=== PATIENT | male | born 1945 | race Caucasian/White ===

== ENCOUNTER 2021-07-11 17:32 | Inpatient (IN) ==
[2021-07-11 18:46] LABS: Basophils # (auto) 0.02 K/uL (0-0.2); Basophils % (auto) 0.2 %; Eosinophils # (auto) 0.54 K/uL (0-0.5); Eosinophils % (auto) 4.5 %; Hematocrit (blood only) 40.2 % (42-52); Hemoglobin 12.8 g/dL (14.0-18.0); Immature Granulocytes # (auto) 0.05 K/uL (0.00-0.02); Immature Granulocytes % (auto) 0.4 %; Lymphocytes # (auto) 1.72 K/uL (1.2-3.4); Lymphocytes % (auto) 14.4 %; Mean Corpuscular Hemoglobin 27.5 pg (25-34); Mean Corpuscular Hgb Conc 31.8 g/dL (32-36); Mean Corpuscular Volume 86.3 fL (80-100); Mean Platelet Volume 10.1 fL (7.4-10.4); Monocytes # (auto) 0.99 K/uL (0.11-0.59); Monocytes % (auto) 8.3 %; Neutrophils # (auto) 8.63 K/uL (1.4-6.5); Neutrophils % (auto) 72.2 %; Platelet Count 317 K/uL (130-400); RDW Coefficient of Variation 14.3 % (11.5-14.5); RDW Standard Deviation 44.8 fL (36.4-46.3); Red Blood Count 4.66 M/uL (4.7-6.1); White Blood Count 11.95 K/uL (4.8-10.8)
[2021-07-11 19:09] LABS: Albumin Globulin Ratio 0.9 (0.9-2); Albumin Level 3.9 gm/dl (3.4-5.0); BUN Creatinine Ratio 19.8 (10-20); Bilirubin,Total 0.6 mg/dl (0.2-1.0); Calcium 9.2 mg/dl (8.5-10.1); Creatinine Clr Calc Pharmacy 77.7 ml/min; Est GFR (African American) 85.1 ml/min; Est GFR (Non-African American) 73.4 ml/min; Globulin 4.2 gm/dl (2.5-4.0); Potassium 3.5 mmol/L (3.5-5.1); Total Protein 8.1 gm/dl (6.0-8.3)
[2021-07-11] MEDS ORDERED: DAPTOmycin 500 MG in SYRINGE 0 ML IV ONE (19:27)
[2021-07-11] MEDS ORDERED: CEFEPIME 2,000 MG/20 ML VIAL IV STA (19:27)
--- NOTE | 2021-07-11 19:33 | Emergency Department Note ---
Impression & Plan Cellulitis, Failure of outpatient treatment, Leukocytosis, Pedal edema ED Provider Note NAME: ELI MIXON AGE: 75 SEX: M : 1945 ARRIVES VIA: Ambulance INFORMANT: [Patient] ED PROVIDER(S): [Pritesh Fallon MD] CHIEF COMPLAINT: Foot infection HISTORY OF PRESENT ILLNESS: The patient is a 75-year-old male who states that he has been dealing with an issue/infection in his left foot and leg for over a month. He has been on multiple antibiotics. The patient was seen today by home health and sent to the ER as his foot continues to worsen. He had a foul odor noted today. There has been no fever, no cough or congestion or shortness of breath. The patient is not sure if he is currently on an antibiotic or not. He has a bag of pills at bedside. The bag contains Lasix, omeprazole and Eliquis. The patient states that the toes of the left foot have become macerated and discolored. He states they are painful when touched. REVIEW OF SYSTEMS: See HPI for pertinent positives and negatives. A total of ten systems were r eviewed and were otherwise negative. PMHx/PSHx: See Below SOCIAL HISTORY: See Below. PHYSICAL EXAM: GENERAL: Patient is in no acute distress. HEENT: No acute trauma, normocephalic atraumatic, mucous membranes moist, no nasal congestion, no scleral icterus. NECK: No stridor, no adenopathy, no meningismus, trachea is midline. LUNGS: Clear to auscultation bilaterally, no wheeze, no rhonchi, breath sounds equal. HEART: Irregular rhythm, normal rate, no murmurs. ABDOMEN: Soft, nontender, bowel sounds positive, no hernias, no peritonitis. EXTREMITIES: No cyanosis. The patient has moderate bilateral pedal edema. Both legs are wrapped. The right leg does not appear to show any concerning erythema. The left leg is erythematous and warm with some foul smelling drainage. The bandage was soaked. The toes of the left foot are quite macerated. NEUROLOGIC: Oriented x 3, no acute motor or sensory deficits, no focal weakness. SKIN: No jaundice, no diaphoresis. DIFFERENTIAL DIAGNOSIS: Osteomyelitis, abscess, cellulitis, gangrene, necrotizing fasciitis, bacteremia, cellulitis, sepsis, DVT, failed outpatient treatment, among others. EMERGENCY DEPARTMENT COURSE/PROCEDURES: ECG: Indication was possible sepsis. The ECG shows a normal sinus rhythm with a rate of 72. There is no ST elevation, no PVCs. The QTc is 420. Continuous Cardiac Monitoring: An order was placed for continuous cardiac monitoring. The monitor shows a rate of 102 with sinus tachycardia. MEDICAL DECISION MAKING: There is a mild leukocytosis which would be consistent with infection. There is a very mild anemia noted. There is a normal platelet count. No renal failure or significant electrolyte abnormality. No concerning liver enzyme elevation. The patient appeared to be in a euthyroid state. COVID test returned negative. Left foot CT does not show any abscess, air or osteomyelitis. Left leg ultrasound does not show any acute DVT. On exam, the patient had cellulitis extending from his toes to his knee on the left. There was a foul odor and discharge appreciated. The patient has failed outpatient treatment for his cellulitis. He requires a hospital stay. The patient was given IV daptomycin, he was given IV cefepime. I spoke with the patient, I talked to case management. The on-call hospitalist was consulted. Past Med/Surg History Medical History Anemia BPH with obstruction/lower urinary tract symptoms Chronic diastolic CHF (congestive heart failure) Colovesical fistula Diverticulosis of colon Dyslipidemia H/O small bowel obstruction History of 2019 novel coronavirus disease (COVID-19) Lower extremity cellulitis Morbid obesity due to excess calories Multiple pulmonary emboli Nephrolithiasis OA (osteoarthritis) of knee Recurrent biliary colic Stasis dermatitis Venous insufficiency Venous stasis ulcer of right calf limited to breakdown of skin with varicose veins Surgical History (Updated 07/11/21 @ 20:06 by Keshia Brady DO) History of partial surgical removal of colon History of tonsillectomy and adenoidectomy S/P colostomy takedown S/P hernia repair Family History (Updated 07/11/21 @ 20:07 by Keshia Brady DO) Mother Hypertension Arthritis Social History Smoking Status: Never smoker Second Hand Exposure: No; Do You Dip or Chew Tobacco: No; Hx Alcohol Use: No Hx Substance Use: No Preferred Language: Portuguese Tacker Off Required: No Beliefs That Will Affect Care: None marital status: Single Current Living Situation: Family Current Living Situation Comment: Lives with brother Other Information That Helps Us Care for You: No Feels Safe at Home: Yes Safety Concerns: Feels Safe At This Time Assistive Devices: Cane, Glasses and Walker Allergies Allergies Allergy/AdvReac Type Severity Reaction Status Date / Time Penicillins Allergy Unknown SHAKING/RICK Verified 07/11/21 19:54 [facility] Meds Home Medications Medication Instructions Recorded Confirmed acetaminophen 500 mg tablet 1,000 mg PO DIRECTED PRN 07/11/21 07/12/21 (Tylenol Extra Strength) apixaban 5 mg tablet (Eliquis) 5 mg PO BID 07/11/21 07/12/21 furosemide 40 mg tablet 40 mg PO BID 07/11/21 07/12/21 naproxen sodium 220 mg tablet 220 - 440 mg PO DIRECTED PRN 07/11/21 07/12/21 (Aleve) omeprazole 40 mg capsule,delayed 40 mg PO DAILY 07/11/21 07/12/21 release Results & Data (ED) Vital Signs Vital Signs - 24 hr 07/11/21 17:18 Temperature 36.9 C Temperature Source Temporal Artery Scan Pulse Rate 78 Respiratory Rate 16 Respiratory Effort / Characteristics Non-Labored Respiratory Depth Normal Blood Pressure 142/83 H Blood Pressure Mean 102 Pulse Oximetry 98 Oxygen Delivery Method Room Air Sepsis Recent Fever Within 48 Hours No Sepsis New/Unexplained Change in Mental Status N/A Sepsis Action Taken by Nursing No Action Required Home Medications Current Medication List: was personally reviewed by me Laboratory Data Attestation: I reviewed the patient's lab results. Result diagrams: 07/11/21 18:20 07/11/21 18:20 Lab Results 07/11/21 07/11/21 07/11/21 Range/Units 18:20 18:20 18:20 WBC 11.95 H (4.8-10.8) K/uL RBC 4.66 L (4.7-6.1) M/uL Hgb 12.8 L (14.0-18.0) g/dL Hct 40.2 L (42-52) % MCV 86.3 (80-100) fL MCH 27.5 (25-34) pg MCHC 31.8 L (32-36) g/dL RDW Std Deviation 44.8 (36.4-46.3) fL RDW Coeff of Silvio 14.3 (11.5-14.5) % Plt Count 317 (130-400) K/uL MPV 10.1 (7.4-10.4) fL Immature Gran % (Auto) 0.4 % Neut % (Auto) 72.2 % Lymph % (Auto) 14.4 % Comal % (Auto) 8.3 % Eos % (Auto) 4.5 % Baso % (Auto) 0.2 % Neut # (Auto) 8.63 H (1.4-6.5) K/uL Lymph # (Auto) 1.72 (1.2-3.4) K/uL Comal # (Auto) 0.99 H (0.11-0.59) K/uL Eos # (Auto) 0.54 H (0-0.5) K/uL Baso # (Auto) 0.02 (0-0.2) K/uL Immature Gran # (Auto) 0.05 H (0.00-0.02) K/uL Sodium 139 (136-145) mmol/L Potassium 3.5 (3.5-5.1) mmol/L Chloride 106 (98-107) mmol/L Carbon Dioxide 24 (21-32) mmol/L Anion Gap 9 (3-11) BUN 20 (6-23) mg/dl Creatinine 1.01 (0.6-1.4) mg/dl Est Cr Clr Drug Dosing 77.7 ml/min Est GFR ( Amer) 85.1 ml/min Est GFR (Non-Af Amer) 73.4 ml/min BUN/Creatinine Ratio 19.8 (10-20) Glucose 85 (70-99(Fasting)) mg/dl Calcium 9.2 (8.5-10.1) mg/dl Total Bilirubin 0.6 (0.2-1.0) mg/dl AST 13 (13-39) U/L ALT 8 (7-52) U/L Alkaline Phosphatase 75 (34-104) U/L Total Protein 8.1 (6.0-8.3) gm/dl Albumin 3.9 (3.4-5.0) gm/dl Globulin 4.2 H (2.5-4.0) gm/dl Albumin/Globulin Ratio 0.9 (0.9-2) TSH 1.893 (0.300-4.500) uIu/ml SARS-CoV-2, RNA, NAAT (NEGATIVE) 07/11/21 Range/Units 19:43 WBC (4.8-10.8) K/uL RBC (4.7-6.1) M/uL Hgb (14.0-18.0) g/dL Hct (42-52) % MCV (80-100) fL MCH (25-34) pg MCHC (32-36) g/dL RDW Std Deviation (36.4-46.3) fL RDW Coeff of Silvio (11.5-14.5) % Plt Count (130-400) K/uL MPV (7.4-10.4) fL Immature Gran % (Auto) % Neut % (Auto) % Lymph % (Auto) % [place] % (Auto) % Eos % (Auto) % Baso % (Auto) % Neut # (Auto) (1.4-6.5) K/uL Lymph # (Auto) (1.2-3.4) K/uL Comal # (Auto) (0.11-0.59) K/uL Eos # (Auto) (0-0.5) K/uL Baso # (Auto) (0-0.2) K/uL Immature Gran # (Auto) (0.00-0.02) K/uL Sodium (136-145) mmol/L Potassium (3.5-5.1) mmol/L Chloride (98-107) mmol/L Carbon Dioxide (21-32) mmol/L Anion Gap (3-11) BUN (6-23) mg/dl Creatinine (0.6-1.4) mg/dl Est Cr Clr Drug Dosing ml/min Est GFR ( Amer) ml/min Est GFR (Non-Af Amer) ml/min BUN/Creatinine Ratio (10-20) Glucose (70-99(Fasting)) mg/dl Calcium (8.5-10.1) mg/dl Total Bilirubin (0.2-1.0) mg/dl AST (13-39) U/L ALT (7-52) U/L Alkaline Phosphatase (34-104) U/L Total Protein (6.0-8.3) gm/dl Albumin (3.4-5.0) gm/dl Globulin (2.5-4.0) gm/dl Albumin/Globulin Ratio (0.9-2) TSH (0.300-4.500) uIu/ml SARS-CoV-2, RNA, NAAT NEGATIVE (NEGATIVE) Administered Medications Apixaban (Apixaban 5 Mg Tablet) 5 mg PO BID ALFONSO Stop: 08/11/21 00:45 Last Admin: 07/12/21 01:27 Dose: 5 mg Documented by: [id number] Discontinued Medications Cefepime HCl (Maxipime) 2,000 mg in 20 mls @ 5 mls/min IV NOW STA; Protocol Stop: 07/11/21 19:30 Last Admin: 07/11/21 19:35 Dose: 5 mls/min Documented by: [id number] Daptomycin 500 mg/ Syringe 10 mls @ 5 mls/min IV NOW ONE; Protocol Stop: 07/11/21 19:28 Last Admin: 07/11/21 21:45 Dose: 5 mls/min Documented by: [id number] Imaging Data Radiologist's Impression: Left foot CT without contrast: There is diffuse soft tissue edema. No emphysema or foreign body, no abscess. No fracture. Arthritis is seen. No osteomyelitis seen. Left lower extremity venous ultrasound: No acute DVT. Left groin adenopathy noted. Discharge Plan Visit Data Chief Complaint: Foot Injury/Pain Stated Complaint: infection ED Provider: Pritesh Fallon Discharge Problem: Cellulitis, Failure of outpatient treatment, Leukocytosis, Pedal edema Patient Disposition: Admitted As Inpatient Condition: Fair Discharge Instructions Interventions: ED Discharge Assessment Last Done: 07/11/21 22:31
--- NOTE | 2021-07-11 20:09 | History & Physical Report ---
Date of Service July 11, 2021 Assessment & Plan (1) Cellulitis of left leg: Plan: Cont with broad spectrum abx started in the car (2) Multiple pulmonary emboli: Plan: Previously diagnosed, cont apixaban (3) DVT prophylaxis: Plan: Eliquis Full Code [facility] [place] [facility] History of Present Illness Chief Complaint: LLE cellulitis Primary Care Provider: NO PCP 75 yo M with h/o multiple PE on apixaban, morbid obesity presents with lower extremity cellulitis, being asked to come to the ER by his home health nurse. Patient reports running out of certain medications including an oral antibiotic for about the last 1 week. He sees a railway station manager at [facility] who last saw him on 06/30 and send time to the ER 2/2 left janetot dominique. He transitioned from the [facility] wound center to home health nursing and she was concerned today for the same issues. He reports pain in the leg that is 4/10 and puffy feet have been present now for a couple of weeks. Denies fevers or chills. DEnies abdominal pain Allergies Allergy/AdvReac Type Severity Reaction Status Date / Time Penicillins Allergy Unknown SHAKING/RICK Verified 07/11/21 19:54 [facility] Medications Medication Instructions Recorded Confirmed Type acetaminophen 500 mg tablet 1,000 mg PO DIRECTED PRN 07/11/21 07/12/21 History (Tylenol Extra Strength) apixaban 5 mg tablet (Eliquis) 5 mg PO BID 07/11/21 07/12/21 History furosemide 40 mg tablet 40 mg PO BID 07/11/21 07/12/21 History naproxen sodium 220 mg tablet 220 - 440 mg PO DIRECTED PRN 07/11/21 07/12/21 History (Aleve) omeprazole 40 mg capsule,delayed 40 mg PO DAILY 07/11/21 07/12/21 History release Past Med/Surg History Medical History Anemia BPH with obstruction/lower urinary tract symptoms Chronic diastolic CHF (congestive heart failure) Colovesical fistula Diverticulosis of colon Dyslipidemia H/O small bowel obstruction History of 2019 novel coronavirus disease (COVID-19) Lower extremity cellulitis Morbid obesity due to excess calories Multiple pulmonary emboli Nephrolithiasis OA (osteoarthritis) of knee Recurrent biliary colic Stasis dermatitis Venous insufficiency Venous stasis ulcer of right calf limited to breakdown of skin with varicose veins Surgical History (Updated 07/11/21 @ 20:06 by Keshia Brady DO) History of partial surgical removal of colon History of tonsillectomy and adenoidectomy S/P colostomy takedown S/P hernia repair Family History (Updated 07/11/21 @ 20:07 by Keshia Brady DO) Mother Hypertension Arthritis Social History Smoking Status: Never smoker Second Hand Exposure: No; Do You Dip or Chew Tobacco: No; Hx Alcohol Use: No Hx Substance Use: No Preferred Language: Indonesian Telephone Collector Required: No Beliefs That Will Affect Care: None marital status: Single Current Living Situation: Family Current Living Situation Comment: Lives with brother Other Information That Helps Us Care for You: No Feels Safe at Home: Yes Safety Concerns: Feels Safe At This Time Assistive Devices: Cane, Glasses and Walker Review of Systems Review of Systems: All systems were reviewed and negative except as indicated in HPI above. Physical Exam Physical Exam: CONSTITUTIONAL: WNWD, vitals as above, generally well- appearing, NAD EYES: normal conjunctivae, no scleral icterus, +glasses ENT: external ear and nose normal, oropharynx clear, poor dentition NECK: trachea midline RESPIRATORY: clear to auscultation bilaterally, no crackles, rales or wheezes, normal respiratory effort CARDIOVASCULAR: regular rate and rhythm, S1 and 2 heard without murmurs, gallops or rubs, no JVD, no peripheral edema CHEST: inspection of chest was normal GASTROINTESTINAL: soft, nontender, ND, no guarding MUSCULOSKELETAL: strength 5/5 throughout, head is normocephalic and atraumatic SKIN: warm and dry, LLE +erythema, scaly skin, puffy foot especially on top, unkempt nails with fungus. NEUROLOGIC: CN 2-12 grossly intact, no sensory deficit, normal cognition, normal speech, no tremor PSYCHIATRIC: alert cooperative and oriented to person, place and time. Results & Data Results & Data ([facility]) Vital Signs (Past 12 Hours) Vital Signs Temp Pulse Resp BP Pulse Ox 07/11/21 17:18 36.9 C 78 16 142/83 H 98 Laboratory Results Short CBC 07/11/21 Range/Units 18:20 WBC 11.95 H (4.8-10.8) K/uL Hgb 12.8 L (14.0-18.0) g/dL Hct 40.2 L (42-52) % Plt Count 317 (130-400) K/uL BMP 07/11/21 18:20 Sodium 139 Potassium 3.5 Chloride 106 Carbon Dioxide 24 BUN 20 Creatinine 1.01 Glucose 85 Calcium 9.2 Liver Function 07/11/21 Range/Units 18:20 Total Bilirubin 0.6 (0.2-1.0) mg/dl AST 13 (13-39) U/L ALT 8 (7-52) U/L Alkaline Phosphatase 75 (34-104) U/L Albumin 3.9 (3.4-5.0) gm/dl Code Status & VTE Plan VTE Prophylaxis Plan VTE Prophylaxis will be ordered: Yes
[2021-07-11] MEDS ORDERED: ONDANSETRON INJ 2 MG/ML 2 ML VIAL IV PRN (23:37)
[2021-07-11] MEDS ORDERED: traMADol HCL 50 MG TABLET PO PRN (23:37)
[2021-07-12] MEDS: APIXABAN 5 MG TABLET PO SCH ×3 (01:27→20:59)
--- NOTE | 2021-07-12 06:36 | Ultrasound Report ---
LEFT LOWER EXTREMITY VENOUS DOPPLER HISTORY: Acute pain and swelling of the left lower leg edema COMPARISON STUDY: None. FINDINGS: There is normal compressibility, flow, and augmentation within the left lower extremity daya p venous system. The distal superficial femoral vein was unable to be compressed secondary to patient pain. Subcutaneous edema limits evaluation of the calf veins. Left inguinal chain lymph nodes measur e up to 2.3 x 1.1 cm. IMPRESSION: No DVT within the left lower extremity. ACT 112: Negative or not required by law. Electronically signed by: Zelalem Calvillo M.D. 07/12/2021 6:35 AM
--- NOTE | 2021-07-12 08:14 | CT Scan Report ---
CT foot LT wo con HISTORY: 75 years-old Male poss osteo acute pain with soft tissue swelling of the left foot. Clinica l concern for possible osteomyelitis. COMPARISON: None TECHNIQUE: Multiple axial CT images of the left foot were obtained without the use of IV contrast. A dose lowering technique was used consistent with the principals of JEANETTE. FINDINGS: There is diffuse atrophy of the intrinsic musculature of the foot. Diffuse subcutaneous edema is devan ed within the dorsal tissues of the midfoot and forefoot. There is associated skin thickening with wi thout drainable fluid collection. Arterial calcifications are noted. Tendons and ligaments are not we ll evaluated by CT technique. No gross tendon or ligamentous injury is identified. Multifocal osteoarthritis of the forefoot, midfoot and hindfoot is probably mild to moderate however is moderate within the midfoot. Moderate to large enthesophytes of the calcaneus. There is no acute f racture, dislocation or osseous erosion to suggest acute osteomyelitis. IMPRESSION: 1. No acute fracture, dislocation or osseous erosion to suggest acute osteomyelitis. 2. Diffuse subcutaneous edema, most pronounced within the dorsal midfoot and forefoot is noted along with skin thickening. This may represent cellulitis, venous stasis or lymphedema. 3. No abscess. 4. Atrophy of the musculature may be secondary to chronic denervation. ACT 112: Negative or not required by law. The above report was generated using voice recognition software. It may contain grammatical, syntax o r spelling errors. Electronically signed by: Zelalem Calvillo M.D. 07/12/2021 8:12 AM
[2021-07-12 08:47] LABS: Hematocrit (blood only) 37.3 % (42-52); Hemoglobin 11.9 g/dL (14.0-18.0); Mean Corpuscular Hemoglobin 27.2 pg (25-34); Mean Corpuscular Hgb Conc 31.9 g/dL (32-36); Mean Corpuscular Volume 85.2 fL (80-100); Mean Platelet Volume 9.8 fL (7.4-10.4); Platelet Count 272 K/uL (130-400); RDW Coefficient of Variation 14.3 % (11.5-14.5); RDW Standard Deviation 44.8 fL (36.4-46.3); Red Blood Count 4.38 M/uL (4.7-6.1); White Blood Count 8.85 K/uL (4.8-10.8)
[2021-07-12 09:08] LABS: BUN Creatinine Ratio 20.2 (10-20); C Reactive Protein 2.57 mg/dl (0-0.5); Calcium 8.6 mg/dl (8.5-10.1); Creatinine Clr Calc Pharmacy 77.3 ml/min; Est GFR (African American) 87.2 ml/min; Est GFR (Non-African American) 75.2 ml/min; Potassium 3.6 mmol/L (3.5-5.1)
[2021-07-12] MEDS: FUROSEMIDE 40 MG TAB PO SCH ×2 (09:34→17:21)
[2021-07-12] MEDS: PANTOprazole 40 MG TAB PO SCH (09:34)
--- NOTE | 2021-07-12 17:41 | Hospitalist Progress Note ---
Date of Service July 12, 2021 Assessment & Plan (1) Cellulitis of left leg: Plan: Bilateral leg swelling for a long time Increased with redness and cellulitis since February of last year and may be longer than that Has been under care of [facility] wound care center Condition has been getting worse recently without any fever and/or chills She was sent in by home health nurse Wound care has been consulted Cont with broad spectrum abx started in the car Obesity (2) Multiple pulmonary emboli: Plan: Previously diagnosed, cont apixaban History of multiple pulmonary emboli Continue apixaban (3) DVT prophylaxis: Plan: Eliquis Full Code Dispo- to floor DO Savanna Russell Hospitalist Admission and Anticipated Discharge Date Admission Date: July 11, 2021 Subjective 07/12/2021 The patient was seen and examined in medical telemetry unit He has been complaining of increasing redness and swelling involving the legs, more on the left than the right Denies any fever and or chills No nausea and or vomiting Review of Systems Review of Systems: All systems reviewed and are unremarkable except as noted below Physical Exam Physical Exam: Lying in bed comfortably Constitutional: well developed, well nourished and + obese; not ill appearing Eyes: PERRL, conjunctivae normal, anicteric sclerae ENMT: external ear and nose normal, oropharynx normal Neck: trachea midline, no thyromegaly Respiratory: no respiratory distress Auscultation: + diminished lung sounds and + crackles (Minimal crackles at the bases) Cardiovascular: Rate/Rhythm: regular rate and regular rhythm Heart Sounds: normal S1 and normal S2; no murmur Extremities: + edema (Bilateral leg swelling.Swelling of the feet.Increasing redness both the leg) Gastrointestinal (Abdomen): Inspection/Auscultation: + abdomen distended and normal bowel sounds Percussion/Palpation: abdomen soft; abdomen nontender Musculoskeletal: No acute arthritis in any joint Skin: Bilateral leg cellulitis. Feet more than the lower leg Neurologic: Alert, awake and oriented x3 Psychiatric: A+Ox3, euthymic affect Lymphatic: no cervical or axillary lymphadenopathy Results & Data Results & Data ([facility]) Vital Signs (Past 12 Hours) Vital Signs Temp Pulse Pulse Resp BP Pulse Ox 07/12/21 15:03 36.6 C 67 18 125/77 97 07/12/21 11:08 36.6 C 69 18 138/78 99 07/12/21 08:00 78 07/12/21 07:33 36.4 C L 69 18 113/69 98 Laboratory Results Short CBC 07/11/21 07/12/21 Range/Units 18:20 08:25 WBC 11.95 H 8.85 (4.8-10.8) K/uL Hgb 12.8 L 11.9 L (14.0-18.0) g/dL Hct 40.2 L 37.3 L (42-52) % Plt Count 317 272 (130-400) K/uL BMP 07/11/21 07/12/21 18:20 08:25 Sodium 139 138 Potassium 3.5 3.6 Chloride 106 107 Carbon Dioxide 24 24 BUN 20 20 Creatinine 1.01 0.99 Glucose 85 129 H Calcium 9.2 8.6 Liver Function 07/11/21 Range/Units 18:20 Total Bilirubin 0.6 (0.2-1.0) mg/dl AST 13 (13-39) U/L ALT 8 (7-52) U/L Alkaline Phosphatase 75 (34-104) U/L Albumin 3.9 (3.4-5.0) gm/dl Medications Administered Current Inpatient Medications Acetaminophen (Acetaminophen 325 Mg Tab) 650 mg PO Q4H PRN PRN Reason: Pain or Fever Stop: 08/10/21 23:36 Apixaban (Apixaban 5 Mg Tablet) 5 mg PO BID [facility] Stop: 08/11/21 00:45 Last Admin: 07/12/21 09:34 Dose: 5 mg Documented by: Furosemide (Furosemide 40 Mg Tab) 40 mg PO BID17 [facility] Stop: 08/11/21 08:59 Last Admin: 07/12/21 17:21 Dose: 40 mg Documented by: Daptomycin 350 mg/ Syringe 7 mls @ 3.5 mls/min IV Q24H [facility]; Protocol Stop: 07/19/21 21:59 Miscellaneous Information (Daptomycin Consult Active) 1 ea N/A UD PRN PRN Reason: Consult Stop: 08/10/21 19:26 Ondansetron HCl (Ondansetron Inj 2 Mg/Ml 2 Ml Vial) 4 mg IV Q6H PRN PRN Reason: Nausea Stop: 08/10/21 23:36 Pantoprazole Sodium (Pantoprazole 40 Mg Tab) 40 mg PO DAILY ALFONSO Stop: 08/11/21 08:59 Last Admin: 07/12/21 09:34 Dose: 40 mg Documented by: Tramadol HCl (Tramadol Hcl 50 Mg Tablet) 50 mg PO Q4H PRN PRN Reason: Pain Stop: 08/10/21 23:36
--- NOTE | 2021-07-12 20:43 | Ultrasound Report ---
ULTRASOUND RIGHT LOWER EXTREMITY VENOUS CLINICAL HISTORY: Reported history of deep venous thrombosis. COMPARISON STUDY: No priors. TECHNIQUE: Real-time, grayscale, and color Doppler sonography of the deep veins of the right lower ex tremity was performed from the inguinal crease to the calf. Compression and augmentation were utilize d. FINDINGS: There is no sonographic evidence of deep venous thrombosis identified in the right lower ex tremity. The common femoral, superficial femoral, and popliteal veins are patent and normally memo sible. The greater saphenous vein and the profunda femoris vein at the junction with the common femor al vein are clear. The visualized calf veins are patent. IMPRESSION: There is no sonographic evidence of deep venous thrombosis identified in the right lower extremity. ACT 112: Negative or not required by law. Electronically signed by: Pritesh Garzon M.D. 07/12/2021 8:42 PM
[2021-07-12] MEDS: DAPTOmycin 350 MG in SYRINGE 0 ML IV SCH (21:02)
--- NOTE | 2021-07-12 21:34 | Ultrasound Report ---
ULTRASOUND ANKLE-BRACHIAL INDICES CLINICAL HISTORY: Bilateral foot ulcers. COMPARISON STUDY: No priors. FINDINGS: Ankle-brachial indices were assessed in ultrasound. Right brachial pressure measures 107. P ressures in the right posterior tibial artery measure 137 for an GOLD of 1.28. The right dorsalis pedi s was not compressible. Pressure in the left posterior tibial artery measures 147 for an GOLD of 1.37, and pressures in the left dorsalis pedis measure 116 for an GOLD of 1.08. IMPRESSION: 1. Ankle-brachial indices as above. 2. The right dorsalis pedis artery was noncompressible. Dictated: 07/12/2021 9:17 PM Transcribed: 07/12/2021 9:28 PM Romana [id number] CHIQUIS_Raiza Electronically signed by: Pritesh Garzon M.D. 07/12/2021 9:33 PM
[2021-07-13 06:17] LABS: Basophils # (auto) 0.02 K/uL (0-0.2); Basophils % (auto) 0.2 %; Eosinophils # (auto) 0.83 K/uL (0-0.5); Hematocrit (blood only) 39.6 % (42-52); Hemoglobin 12.7 g/dL (14.0-18.0); Immature Granulocytes # (auto) 0.03 K/uL (0.00-0.02); Immature Granulocytes % (auto) 0.3 %; Lymphocytes # (auto) 1.08 K/uL (1.2-3.4); Lymphocytes % (auto) 9.1 %; Mean Corpuscular Hemoglobin 27.4 pg (25-34); Mean Corpuscular Hgb Conc 32.1 g/dL (32-36); Mean Corpuscular Volume 85.5 fL (80-100); Mean Platelet Volume 9.8 fL (7.4-10.4); Monocytes # (auto) 0.85 K/uL (0.11-0.59); Monocytes % (auto) 7.2 %; Neutrophils # (auto) 9.05 K/uL (1.4-6.5); Neutrophils % (auto) 76.2 %; Platelet Count 268 K/uL (130-400); RDW Coefficient of Variation 14.4 % (11.5-14.5); RDW Standard Deviation 45.1 fL (36.4-46.3); Red Blood Count 4.63 M/uL (4.7-6.1); White Blood Count 11.86 K/uL (4.8-10.8)
[2021-07-13 06:44] LABS: BUN Creatinine Ratio 19.1 (10-20); Calcium 8.6 mg/dl (8.5-10.1); Creatinine Clr Calc Pharmacy 69.5 ml/min; Est GFR (African American) 76.8 ml/min; Est GFR (Non-African American) 66.2 ml/min; Potassium 3.4 mmol/L (3.5-5.1)
[2021-07-13] MEDS ORDERED: POTASSIUM CHLORIDE CRTAB 20 MEQ TABCR PO STA (08:25)
[2021-07-13] MEDS: APIXABAN 5 MG TABLET PO SCH ×2 (09:38→21:47)
[2021-07-13] MEDS: PANTOprazole 40 MG TAB PO SCH (09:38)
[2021-07-13] MEDS: FUROSEMIDE 40 MG TAB PO SCH ×2 (09:39→17:34)
--- NOTE | 2021-07-13 10:21 | Electrocardiogram Report ---
Test Reason : Blood Pressure : / mmHG Vent. Rate : 072 BPM Atrial Rate : 072 BPM P-R Int : 188 ms QRS Dur : 090 ms QT Int : 384 ms P-R-T Axes : 002 -12 051 degrees QTc Int : 420 ms Poor data quality, interpretation may be adversely affected Normal sinus rhythm Normal ECG No previous ECGs available Confirmed by Luis Felipe Taveras ([id number]) on 07/13/2021 10:21:13 AM Referred By: REFERRED SELF Confirmed By:Luis Felipe Taveras
--- NOTE | 2021-07-13 15:15 | Hospitalist Progress Note ---
Date of Service July 13, 2021 Assessment & Plan (1) Cellulitis of left leg: Plan: Bilateral leg swelling for a long time Increased with redness and cellulitis since February of last year and may be longer than that Has been under care of [facility] wound care center Condition has been getting worse recently without any fever and/or chills She was sent in by home health nurse Wound care has been consulted Cont with broad spectrum abx started in the car Appreciate ID input and recommendation-daptomycin and meropenem for a total of 14 days, awaiting further recommendation depending on sensitivity and culture Patient is being followed of by backrest assembler and also wound care as an outpatient and will continue PT and OT evaluation for possible placement No evidence of DVTs-GOLD noted Obesity Advised diet and weight management (2) Multiple pulmonary emboli: Plan: Previously diagnosed, cont apixaban History of multiple pulmonary emboli Continue apixaban (3) DVT prophylaxis: Plan: Harriet Full Code Dispo- to floor Admission and Anticipated Discharge Date Admission Date: July 11, 2021 Subjective 07/12/2021 The patient was seen and examined in medical telemetry unit He has been complaining of increasing redness and swelling involving the legs, more on the left than the right Denies any fever and or chills No nausea and or vomiting 07/13/2021 The patient was seen and examined in medical telemetry unit He has been out of bed on a chair He denies any fever and/or chills Legs are not any better Review of Systems Review of Systems: All systems reviewed and are unremarkable except as noted below Physical Exam Physical Exam: Lying in bed comfortably Constitutional: well developed, well nourished and + obese; not ill appearing Eyes: PERRL, conjunctivae normal, anicteric sclerae ENMT: external ear and nose normal, oropharynx normal Neck: trachea midline, no thyromegaly Respiratory: no respiratory distress Auscultation: + diminished lung sounds and + crackles (Minimal crackles at the bases) Cardiovascular: Rate/Rhythm: regular rate and regular rhythm Heart Sounds: normal S1 and normal S2; no murmur Extremities: + edema (Bilateral leg swelling.Swelling of the feet.Increasing redness both the leg) Gastrointestinal (Abdomen): Inspection/Auscultation: + abdomen distended and normal bowel sounds Percussion/Palpation: abdomen soft; abdomen nontender Musculoskeletal: No acute arthritis in any joint Skin: Please see the picture of the bilateral leg wounds Neurologic: Alert, awake and oriented x3 Psychiatric: A+Ox3, euthymic affect Lymphatic: no cervical or axillary lymphadenopathy Results & Data Results & Data ([facility]) Vital Signs (Past 12 Hours) Vital Signs Temp Pulse Pulse Resp BP Pulse Ox 07/13/21 11:04 36.8 C 68 17 127/75 99 07/13/21 08:00 68 07/13/21 07:33 36.5 C 64 18 135/75 97 07/13/21 03:49 36.4 C L 73 20 138/76 98 Laboratory Results Short CBC 07/13/21 Range/Units 05:48 WBC 11.86 H (4.8-10.8) K/uL Hgb 12.7 L (14.0-18.0) g/dL Hct 39.6 L (42-52) % Plt Count 268 (130-400) K/uL BMP 07/13/21 05:48 Sodium 136 Potassium 3.4 L Chloride 105 Carbon Dioxide 23 BUN 21 Creatinine 1.10 Glucose 96 Calcium 8.6 Medications Administered Current Inpatient Medications Acetaminophen (Acetaminophen 325 Mg Tab) 650 mg PO Q4H PRN PRN Reason: Pain or Fever Stop: 08/10/21 23:36 Apixaban (Apixaban 5 Mg Tablet) 5 mg PO BID [facility] Stop: 08/11/21 00:45 Last Admin: 07/13/21 09:38 Dose: 5 mg Documented by: Furosemide (Furosemide 40 Mg Tab) 40 mg PO BID17 [facility] Stop: 08/11/21 08:59 Last Admin: 07/13/21 09:39 Dose: 40 mg Documented by: Daptomycin 350 mg/ Syringe 7 mls @ 3.5 mls/min IV Q24H [facility]; Protocol Stop: 07/19/21 21:59 Last Admin: 07/12/21 21:02 Dose: 3.5 mls/min Documented by: Miscellaneous Information (Daptomycin Consult Active) 1 ea N/A UD PRN PRN Reason: Consult Stop: 08/10/21 19:26 Ondansetron HCl (Ondansetron Inj 2 Mg/Ml 2 Ml Vial) 4 mg IV Q6H PRN PRN Reason: Nausea Stop: 08/10/21 23:36 Pantoprazole Sodium (Pantoprazole 40 Mg Tab) 40 mg PO DAILY [facility] Stop: 08/11/21 08:59 Last Admin: 07/13/21 09:38 Dose: 40 mg Documented by: Tramadol HCl (Tramadol Hcl 50 Mg Tablet) 50 mg PO Q4H PRN PRN Reason: Pain Stop: 08/10/21 23:36
[2021-07-13] MEDS: DAPTOmycin 350 MG in SYRINGE 0 ML IV SCH (21:47)
[2021-07-14 06:10] LABS: Basophils # (auto) 0.02 K/uL (0-0.2); Basophils % (auto) 0.2 %; Eosinophils # (auto) 0.63 K/uL (0-0.5); Hematocrit (blood only) 37.6 % (42-52); Hemoglobin 12.1 g/dL (14.0-18.0); Immature Granulocytes # (auto) 0.03 K/uL (0.00-0.02); Immature Granulocytes % (auto) 0.3 %; Lymphocytes # (auto) 1.17 K/uL (1.2-3.4); Lymphocytes % (auto) 13.1 %; Mean Corpuscular Hemoglobin 27.1 pg (25-34); Mean Corpuscular Hgb Conc 32.2 g/dL (32-36); Mean Corpuscular Volume 84.1 fL (80-100); Mean Platelet Volume 9.9 fL (7.4-10.4); Monocytes % (auto) 7.8 %; Neutrophils % (auto) 71.6 %; Platelet Count 275 K/uL (130-400); RDW Coefficient of Variation 14.3 % (11.5-14.5); Red Blood Count 4.47 M/uL (4.7-6.1); White Blood Count 8.95 K/uL (4.8-10.8)
[2021-07-14 06:35] LABS: BUN Creatinine Ratio 23.5 (10-20); Calcium 8.7 mg/dl (8.5-10.1); Creatinine Clr Calc Pharmacy 77.9 ml/min; Est GFR (African American) 88.3 ml/min; Est GFR (Non-African American) 76.2 ml/min; Potassium 3.4 mmol/L (3.5-5.1)
[2021-07-14] MEDS: APIXABAN 5 MG TABLET PO SCH ×2 (08:27→21:07)
[2021-07-14] MEDS: FUROSEMIDE 40 MG TAB PO SCH ×2 (08:27→17:06)
[2021-07-14] MEDS: PANTOprazole 40 MG TAB PO SCH (08:27)
[2021-07-14] MEDS: cephALEXin 500 MG CAP PO SCH ×3 (13:11→21:07)
--- NOTE | 2021-07-14 16:50 | Hospitalist Progress Note ---
Date of Service July 14, 2021 Assessment & Plan (1) Cellulitis of left leg: Plan: Bilateral leg swelling for a long time Increased with redness and cellulitis since February of last year and may be longer than that Has been under care of [facility] wound care center Condition has been getting worse recently without any fever and/or chills She was sent in by home health nurse Wound care has been consulted Cont with broad spectrum abx started in the car Appreciate ID input and recommendation-daptomycin and meropenem for a total of 14 days, awaiting further recommendation depending on sensitivity and culture Patient is being followed of by agribusiness internship and also wound care as an outpatient and will continue PT and OT evaluation for possible placement No evidence of DVTs-GOLD noted Cellulitis seems to be stable and there is no drainage from the wound Antibiotic has been changed to Keflex Has been getting PT and OT and likely to need placement on discharge Will continue to have outpatient wound care appointment and podiatry appointment Obesity Advised diet and weight management (2) Multiple pulmonary emboli: Plan: Previously diagnosed, cont apixaban History of multiple pulmonary emboli Continue apixaban (3) DVT prophylaxis: Plan: Harriet Full Code Dispo- to floor Admission and Anticipated Discharge Date Admission Date: July 11, 2021 Subjective 07/12/2021 The patient was seen and examined in medical telemetry unit He has been complaining of increasing redness and swelling involving the legs, more on the left than the right Denies any fever and or chills No nausea and or vomiting 07/13/2021 The patient was seen and examined in medical telemetry unit He has been out of bed on a chair He denies any fever and/or chills Legs are not any better 07/14/2021 The patient was seen and examined in medical telemetry unit alert He is out of bed on a chair Denies any significant complaints except problem with ambulation due to bilateral leg cellulitis He may need rehab placement on discharge Review of Systems Review of Systems: All systems reviewed and are unremarkable except as noted below Physical Exam Physical Exam: Lying in bed comfortably Constitutional: well developed, well nourished and + obese; not ill appearing Eyes: PERRL, conjunctivae normal, anicteric sclerae ENMT: external ear and nose normal, oropharynx normal Neck: trachea midline, no thyromegaly Respiratory: no respiratory distress Auscultation: + diminished lung sounds and + crackles (Minimal crackles at the bases) Cardiovascular: Rate/Rhythm: regular rate and regular rhythm Heart Sounds: normal S1 and normal S2; no murmur Extremities: + edema (Bilateral leg swelling.Swelling of the feet.Increasing redness both the leg) Gastrointestinal (Abdomen): Inspection/Auscultation: + abdomen distended and normal bowel sounds Percussion/Palpation: abdomen soft; abdomen nontender Musculoskeletal: No acute arthritis in any joint Neurologic: Alert, awake and oriented x3. No focal sensory or no motor deficit appreciated Psychiatric: A+Ox3, euthymic affect Lymphatic: no cervical or axillary lymphadenopathy Results & Data Results & Data ([facility]) Vital Signs (Past 12 Hours) Vital Signs Temp Pulse Pulse Pulse Resp BP Pulse Ox 07/14/21 15:48 36.5 C 67 18 120/77 99 07/14/21 14:20 68 07/14/21 11:15 36.4 C L 70 18 118/72 98 07/14/21 07:26 36.5 C 67 18 122/75 96 07/14/21 06:12 72 Laboratory Results Short CBC 07/14/21 Range/Units 05:43 WBC 8.95 (4.8-10.8) K/uL Hgb 12.1 L (14.0-18.0) g/dL Hct 37.6 L (42-52) % Plt Count 275 (130-400) K/uL BMP 07/14/21 05:43 Sodium 137 Potassium 3.4 L Chloride 105 Carbon Dioxide 24 BUN 23 Creatinine 0.98 Glucose 94 Calcium 8.7 Medications Administered Current Inpatient Medications Acetaminophen (Acetaminophen 325 Mg Tab) 650 mg PO Q4H PRN PRN Reason: Pain or Fever Stop: 08/10/21 23:36 Apixaban (Apixaban 5 Mg Tablet) 5 mg PO BID [facility] Stop: 08/11/21 00:45 Last Admin: 07/14/21 08:27 Dose: 5 mg Documented by: Cephalexin HCl (Cephalexin 500 Mg Cap) 500 mg PO QID [facility] Stop: 07/21/21 12:59 Last Admin: 07/14/21 13:11 Dose: 500 mg Documented by: Furosemide (Furosemide 40 Mg Tab) 40 mg PO BID17 [facility] Stop: 08/11/21 08:59 Last Admin: 07/14/21 08:27 Dose: 40 mg Documented by: Ondansetron HCl (Ondansetron Inj 2 Mg/Ml 2 Ml Vial) 4 mg IV Q6H PRN PRN Reason: Nausea Stop: 08/10/21 23:36 Pantoprazole Sodium (Pantoprazole 40 Mg Tab) 40 mg PO DAILY [facility] Stop: 08/11/21 08:59 Last Admin: 07/14/21 08:27 Dose: 40 mg Documented by: Tramadol HCl (Tramadol Hcl 50 Mg Tablet) 50 mg PO Q4H PRN PRN Reason: Pain Stop: 08/10/21 23:36
[2021-07-14] MEDS: ACETAMINOPHEN 325 MG TAB PO PRN (21:07)
[2021-07-15 07:40] LABS: Basophils # (auto) 0.02 K/uL (0-0.2); Basophils % (auto) 0.2 %; Eosinophils # (auto) 0.69 K/uL (0-0.5); Eosinophils % (auto) 7.6 %; Hematocrit (blood only) 37.9 % (42-52); Hemoglobin 12.3 g/dL (14.0-18.0); Immature Granulocytes # (auto) 0.03 K/uL (0.00-0.02); Immature Granulocytes % (auto) 0.3 %; Lymphocytes # (auto) 1.44 K/uL (1.2-3.4); Lymphocytes % (auto) 15.8 %; Mean Corpuscular Hemoglobin 27.6 pg (25-34); Mean Corpuscular Hgb Conc 32.5 g/dL (32-36); Mean Corpuscular Volume 85.2 fL (80-100); Mean Platelet Volume 10.1 fL (7.4-10.4); Monocytes # (auto) 0.77 K/uL (0.11-0.59); Monocytes % (auto) 8.5 %; Neutrophils # (auto) 6.16 K/uL (1.4-6.5); Neutrophils % (auto) 67.6 %; Platelet Count 303 K/uL (130-400); RDW Coefficient of Variation 14.1 % (11.5-14.5); RDW Standard Deviation 44.5 fL (36.4-46.3); Red Blood Count 4.45 M/uL (4.7-6.1); White Blood Count 9.11 K/uL (4.8-10.8)
[2021-07-15] MEDS: APIXABAN 5 MG TABLET PO SCH ×2 (07:46→20:08)
[2021-07-15] MEDS: PANTOprazole 40 MG TAB PO SCH (07:46)
[2021-07-15] MEDS: cephALEXin 500 MG CAP PO SCH ×4 (07:46→20:08)
[2021-07-15] MEDS: FUROSEMIDE 40 MG TAB PO SCH ×2 (07:47→16:02)
[2021-07-15 08:03] LABS: BUN Creatinine Ratio 26.3 (10-20); Calcium 8.9 mg/dl (8.5-10.1); Creatinine Clr Calc Pharmacy 76.9 ml/min; Est GFR (African American) 87.2 ml/min; Est GFR (Non-African American) 75.2 ml/min; Potassium 3.2 mmol/L (3.5-5.1)
[2021-07-15] MEDS ORDERED: POTASSIUM CHLORIDE CRTAB 20 MEQ TABCR PO STA (08:25)
--- NOTE | 2021-07-15 13:49 | Hospitalist Progress Note ---
Date of Service July 15, 2021 Assessment & Plan (1) Cellulitis of left leg: Plan: Bilateral leg swelling for a long time Increased with redness and cellulitis since February of last year and may be longer than that Has been under care of [facility] wound care center Condition has been getting worse recently without any fever and/or chills She was sent in by home health nurse Wound care has been consulted Cont with broad spectrum abx started in the car Appreciate ID input and recommendation-daptomycin and meropenem for a total of 14 days, awaiting further recommendation depending on sensitivity and culture Patient is being followed of by animal park code enforcement officer and also wound care as an outpatient and will continue PT and OT evaluation for possible placement No evidence of DVTs-GOLD noted Cellulitis seems to be stable and there is no drainage from the wound Antibiotic has been changed to Keflex Has been getting PT and OT and likely to need placement on discharge Will continue to have outpatient wound care appointment and podiatry appointment Legs are looking much better today Advised to keep the leg elevated over AFP low at 2 during the night Continue dressing as per the wound care nurse Has been waiting to be placed Obesity Advised diet and weight management (2) Multiple pulmonary emboli: Plan: Previously diagnosed, cont apixaban History of multiple pulmonary emboli Continue apixaban (3) DVT prophylaxis: Plan: Harriet Full Code Dispo- to floor Admission and Anticipated Discharge Date Admission Date: July 11, 2021 Subjective 07/12/2021 The patient was seen and examined in medical telemetry unit He has been complaining of increasing redness and swelling involving the legs, more on the left than the right Denies any fever and or chills No nausea and or vomiting 07/13/2021 The patient was seen and examined in medical telemetry unit He has been out of bed on a chair He denies any fever and/or chills Legs are not any better 07/14/2021 The patient was seen and examined in medical telemetry unit He is out of bed on a chair Denies any significant complaints except problem with ambulation due to bilateral leg cellulitis He may need rehab placement on discharge 07/15/2021 The patient was seen and examined in medical telemetry unit He has been out of bed on a chair Has been feeling much better since admission and the legs are looking better Review of Systems Review of Systems: All systems reviewed and are unremarkable except as noted below Physical Exam Physical Exam: Lying in bed comfortably Constitutional: well developed, well nourished and + obese; not ill appearing Eyes: PERRL, conjunctivae normal, anicteric sclerae ENMT: external ear and nose normal, oropharynx normal Neck: trachea midline, no thyromegaly Respiratory: no respiratory distress Auscultation: + diminished lung sounds and + crackles (Minimal crackles at the bases) Cardiovascular: Rate/Rhythm: regular rate and regular rhythm Heart Sounds: normal S1 and normal S2; no murmur Extremities: + edema (Bilateral leg swelling.Swelling of the feet.Increasing redness both the leg) Gastrointestinal (Abdomen): Inspection/Auscultation: + abdomen distended and normal bowel sounds Percussion/Palpation: abdomen soft; abdomen nontender Musculoskeletal: No acute arthritis in any joint Skin: Bilateral leg edema with chronic skin changes and redness with cellulitis, but the feet are worse than the leg Neurologic: Alert, awake and oriented x3. No focal sensory and motor deficit appreciated Psychiatric: A+Ox3, euthymic affect Lymphatic: no cervical or axillary lymphadenopathy Results & Data Results & Data ([facility]) Vital Signs (Past 12 Hours) Vital Signs Temp Pulse Pulse Resp BP BP Pulse Ox 07/15/21 11:27 36.6 C 66 20 137/84 97 07/15/21 09:15 60 07/15/21 07:23 36.3 C L 60 20 126/76 97 07/15/21 03:12 36.4 C L 62 18 127/77 97 Laboratory Results Short CBC 07/15/21 Range/Units 07:15 WBC 9.11 (4.8-10.8) K/uL Hgb 12.3 L (14.0-18.0) g/dL Hct 37.9 L (42-52) % Plt Count 303 (130-400) K/uL BMP 07/15/21 07:15 Sodium 137 Potassium 3.2 L Chloride 102 Carbon Dioxide 26 BUN 26 H Creatinine 0.99 Glucose 93 Calcium 8.9 Medications Administered Current Inpatient Medications Acetaminophen (Acetaminophen 325 Mg Tab) 650 mg PO Q4H PRN PRN Reason: Pain or Fever Stop: 08/10/21 23:36 Last Admin: 07/14/21 21:07 Dose: 650 mg Documented by: Apixaban (Apixaban 5 Mg Tablet) 5 mg PO BID [facility] Stop: 08/11/21 00:45 Last Admin: 07/15/21 07:46 Dose: 5 mg Documented by: Cephalexin HCl (Cephalexin 500 Mg Cap) 500 mg PO QID [facility] Stop: 07/21/21 12:59 Last Admin: 07/15/21 12:47 Dose: 500 mg Documented by: Furosemide (Furosemide 40 Mg Tab) 40 mg PO BID17 [facility] Stop: 08/11/21 08:59 Last Admin: 07/15/21 07:47 Dose: 40 mg Documented by: Ondansetron HCl (Ondansetron Inj 2 Mg/Ml 2 Ml Vial) 4 mg IV Q6H PRN PRN Reason: Nausea Stop: 08/10/21 23:36 Pantoprazole Sodium (Pantoprazole 40 Mg Tab) 40 mg PO DAILY [facility] Stop: 08/11/21 08:59 Last Admin: 07/15/21 07:46 Dose: 40 mg Documented by: Tramadol HCl (Tramadol Hcl 50 Mg Tablet) 50 mg PO Q4H PRN PRN Reason: Pain Stop: 08/10/21 23:36
[2021-07-15] MEDS: ACETAMINOPHEN 325 MG TAB PO PRN (20:07)
[2021-07-16] MEDS: cephALEXin 500 MG CAP PO SCH ×4 (08:07→20:12)
[2021-07-16] MEDS: APIXABAN 5 MG TABLET PO SCH ×2 (08:07→20:12)
[2021-07-16] MEDS: PANTOprazole 40 MG TAB PO SCH (08:08)
[2021-07-16] MEDS: FUROSEMIDE 40 MG TAB PO SCH ×2 (08:08→16:42)
--- NOTE | 2021-07-16 15:11 | Hospitalist Progress Note ---
Date of Service July 16, 2021 Assessment & Plan (1) Cellulitis of left leg: Plan: Bilateral leg swelling for a long time Increased with redness and cellulitis since February of last year and may be longer than that Has been under care of [facility] wound care center Condition has been getting worse recently without any fever and/or chills She was sent in by home health nurse Wound care has been consulted Cont with broad spectrum abx started in the car Appreciate ID input and recommendation-daptomycin and meropenem for a total of 14 days, awaiting further recommendation depending on sensitivity and culture Patient is being followed of by real estate closer and also wound care as an outpatient and will continue PT and OT evaluation for possible placement No evidence of DVTs-GOLD noted Cellulitis seems to be stable and there is no drainage from the wound Antibiotic has been changed to Keflex Has been getting PT and OT and likely to need placement on discharge Will continue to have outpatient wound care appointment and podiatry appointment Legs are looking much better today with decreasing redness and swelling without significant wheezing of any fluid Advised to keep the legs elevated over 1 or 2 pillows at night Likely to be discharged tomorrow, likely home with home health nurse, antibiotic course should be continued a total of 14 days Continue with outpatient podiatry and wound care management Obesity Advised diet and weight management (2) Multiple pulmonary emboli: Plan: Previously diagnosed, cont apixaban History of multiple pulmonary emboli Continue apixaban (3) DVT prophylaxis: Plan: Harriet Full Code Dispo- to floor Admission and Anticipated Discharge Date Admission Date: July 11, 2021 Subjective 07/12/2021 The patient was seen and examined in medical telemetry unit He has been complaining of increasing redness and swelling involving the legs, more on the left than the right Denies any fever and or chills No nausea and or vomiting 07/13/2021 The patient was seen and examined in medical telemetry unit He has been out of bed on a chair He denies any fever and/or chills Legs are not any better 07/14/2021 The patient was seen and examined in medical telemetry unit He is out of bed on a chair Denies any significant complaints except problem with ambulation due to bilateral leg cellulitis He may need rehab placement on discharge 07/15/2021 The patient was seen and examined in medical telemetry unit He has been out of bed on a chair Has been feeling much better since admission and the legs are looking better 07/16/2021 The patient was seen and examined in medical telemetry unit He has been feeling much better and his legs are much better too Denies any pain in the legs-has been ambulating reasonably Denies any fever and/or chills and no other symptoms Review of Systems Review of Systems: All systems reviewed and are unremarkable except as noted below Physical Exam Physical Exam: Lying in bed comfortably Constitutional: well developed, well nourished and + obese; not ill appearing Eyes: PERRL, conjunctivae normal, anicteric sclerae ENMT: external ear and nose normal, oropharynx normal Neck: trachea midline, no thyromegaly Respiratory: no respiratory distress Auscultation: + diminished lung sounds and + crackles (Minimal crackles at the bases) Cardiovascular: Rate/Rhythm: regular rate and regular rhythm Heart Sounds: normal S1 and normal S2; no murmur Extremities: + edema (Bilateral leg swelling.Swelling of the feet. Both the legs are improved) Gastrointestinal (Abdomen): Inspection/Auscultation: + abdomen distended and normal bowel sounds Percussion/Palpation: abdomen soft; abdomen nontender Musculoskeletal: No acute arthritis in any joint Neurologic: Alert, awake and oriented x3. No focal sensory or no motor deficit appreciated Psychiatric: A+Ox3, euthymic affect Lymphatic: no cervical or axillary lymphadenopathy Results & Data Results & Data ([facility]) Vital Signs (Past 12 Hours) Vital Signs Temp Pulse Pulse Resp BP Pulse Ox 07/16/21 14:53 80 07/16/21 14:41 36.4 C L 70 18 138/82 93 07/16/21 11:48 36.5 C 69 20 114/74 96 07/16/21 08:23 65 07/16/21 07:29 36.4 C L 65 20 136/75 99 07/16/21 03:55 36.4 C L 63 20 137/69 97 Medications Administered Current Inpatient Medications Acetaminophen (Acetaminophen 325 Mg Tab) 650 mg PO Q4H PRN PRN Reason: Pain or Fever Stop: 08/10/21 23:36 Last Admin: 07/15/21 20:07 Dose: 650 mg Documented by: Apixaban (Apixaban 5 Mg Tablet) 5 mg PO BID [facility] Stop: 08/11/21 00:45 Last Admin: 07/16/21 08:07 Dose: 5 mg Documented by: Cephalexin HCl (Cephalexin 500 Mg Cap) 500 mg PO QID [facility] Stop: 07/21/21 12:59 Last Admin: 07/16/21 14:29 Dose: 500 mg Documented by: Furosemide (Furosemide 40 Mg Tab) 40 mg PO BID17 [facility] Stop: 08/11/21 08:59 Last Admin: 07/16/21 08:08 Dose: 40 mg Documented by: Ondansetron HCl (Ondansetron Inj 2 Mg/Ml 2 Ml Vial) 4 mg IV Q6H PRN PRN Reason: Nausea Stop: 08/10/21 23:36 Pantoprazole Sodium (Pantoprazole 40 Mg Tab) 40 mg PO DAILY [facility] Stop: 08/11/21 08:59 Last Admin: 07/16/21 08:08 Dose: 40 mg Documented by: Tramadol HCl (Tramadol Hcl 50 Mg Tablet) 50 mg PO Q4H PRN PRN Reason: Pain Stop: 08/10/21 23:36
[2021-07-17 07:37] LABS: Basophils # (auto) 0.02 K/uL (0-0.2); Basophils % (auto) 0.2 %; Eosinophils # (auto) 0.48 K/uL (0-0.5); Eosinophils % (auto) 5.7 %; Hematocrit (blood only) 38.6 % (42-52); Hemoglobin 12.3 g/dL (14.0-18.0); Immature Granulocytes # (auto) 0.03 K/uL (0.00-0.02); Immature Granulocytes % (auto) 0.4 %; Lymphocytes % (auto) 17.9 %; Mean Corpuscular Hemoglobin 27.5 pg (25-34); Mean Corpuscular Hgb Conc 31.9 g/dL (32-36); Mean Corpuscular Volume 86.2 fL (80-100); Monocytes % (auto) 7.2 %; Neutrophils # (auto) 5.76 K/uL (1.4-6.5); Neutrophils % (auto) 68.6 %; Platelet Count 294 K/uL (130-400); RDW Coefficient of Variation 14.2 % (11.5-14.5); RDW Standard Deviation 44.6 fL (36.4-46.3); Red Blood Count 4.48 M/uL (4.7-6.1); White Blood Count 8.39 K/uL (4.8-10.8)
[2021-07-17] MEDS: APIXABAN 5 MG TABLET PO SCH ×2 (07:39→20:36)
[2021-07-17] MEDS: FUROSEMIDE 40 MG TAB PO SCH ×2 (07:39→16:04)
[2021-07-17] MEDS: cephALEXin 500 MG CAP PO SCH ×4 (07:40→20:37)
[2021-07-17] MEDS: PANTOprazole 40 MG TAB PO SCH (07:40)
[2021-07-17 07:58] LABS: Calcium 9.1 mg/dl (8.5-10.1); Creatinine Clr Calc Pharmacy 79.3 ml/min; Est GFR (African American) 90.5 ml/min; Est GFR (Non-African American) 78.1 ml/min; Potassium 3.7 mmol/L (3.5-5.1)
--- NOTE | 2021-07-17 22:28 | Hospitalist Progress Note ---
Date of Service July 17, 2021 Assessment & Plan (1) Cellulitis of left leg: Plan: Bilateral leg swelling for a long time Increased with redness and cellulitis since February of last year and may be longer than that Has been under care of [facility] wound care center Condition has been getting worse recently without any fever and/or chills She was sent in by home health nurse Wound care has been consulted Cont with broad spectrum abx started in the car Appreciate ID input and recommendation-daptomycin and meropenem for a total of 14 days, awaiting further recommendation depending on sensitivity and culture Patient is being followed of by linoleum installer and also wound care as an outpatient and will continue PT and OT evaluation for possible placement No evidence of DVTs-GOLD noted Cellulitis seems to be stable and there is no drainage from the wound Antibiotic has been changed to Keflex Has been getting PT and OT and likely to need placement on discharge Will continue to have outpatient wound care appointment and podiatry appointment Legs are looking much better today with decreasing redness and swelling without significant wheezing of any fluid Advised to keep the legs elevated over 1 or 2 pillows at night Likely to be discharged tomorrow, likely home with home health nurse, to complete a total 14 days course antibiotic Continue with outpatient podiatry and wound care management Obesity Advised diet and weight management (2) Multiple pulmonary emboli: Plan: Previously diagnosed, cont apixaban History of multiple pulmonary emboli Continue apixaban (3) DVT prophylaxis: Plan: Eliquis Full Code Disposition- Plan to discharge home with home health Admission and Anticipated Discharge Date Admission Date: July 11, 2021 Subjective Pt was seen and examined for follow up of B/L LE cellulitis Sitting in bed with no acute distress Pt said that his leg is feeling better Denies any chest pain, palpitation, dizziness and SOB Review of Systems Review of Systems: All systems reviewed & are unremarkable except as noted in Subjective Physical Exam Physical Exam: General- No acute distress Head- atraumatic Eyes- PERRL, EOMI, ENT- oropharynx clear Neck- supple, no JVD Lungs- clear to auscultation Heart- regular rhythm; no murmur Abdomen- normal bowel sounds, soft, nontender Extremities- no calf tenderness, +edema b/l, toes with black discoloration Neuro- alert, oriented x 3; PERRL, EOMI; no facial palsy; no dysarthria Skin- warm & dry Results & Data Results & Data ([facility]) Vital Signs (Past 12 Hours) Vital Signs Temp Pulse Pulse Pulse Resp BP Pulse Ox 07/17/21 19:40 36.7 C 57 L 20 124/78 98 07/17/21 15:24 36.6 C 72 18 137/73 99 07/17/21 14:46 70 07/17/21 11:23 36.2 C L 64 16 118/76 99
[2021-07-18] MEDS: APIXABAN 5 MG TABLET PO SCH (10:10)
[2021-07-18] MEDS: cephALEXin 500 MG CAP PO SCH ×2 (10:10→12:27)
[2021-07-18] MEDS: FUROSEMIDE 40 MG TAB PO SCH (10:10)
[2021-07-18] MEDS: PANTOprazole 40 MG TAB PO SCH (10:10)
--- NOTE | 2021-07-19 08:49 | Discharge Summary ---
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 Patient reports running out of certain medications including an oral antibiotic for about the last 1 week. He sees a thermal intelligence analyst at [facility] who last saw him on 06/30 and send time to the ER 2/2 left jorgito fox. He transitioned from the [facility] wound center to home health nursing and she was concerned today for the same issues. He reports pain in the leg that is 4/10 and puffy feet have been present now for a couple of weeks. Denies fevers or chills. DEnies abdominal pain Admission Exam Per Admitting Provider CONSTITUTIONAL: WNWD, vitals as above, generally well-appearing, NAD EYES: normal conjunctivae, no scleral icterus, +glasses ENT: external ear and nose normal, oropharynx clear, poor dentition NECK: trachea midline RESPIRATORY: clear to auscultation bilaterally, no crackles, rales or wheezes, normal respiratory effort CARDIOVASCULAR: regular rate and rhythm, S1 and 2 heard without murmurs, gallops or rubs, no JVD, no peripheral edema CHEST: inspection of chest was normal GASTROINTESTINAL: soft, nontender, ND, no guarding MUSCULOSKELETAL: strength 5/5 throughout, head is normocephalic and atraumatic SKIN: warm and dry, LLE +erythema, scaly skin, puffy foot especially on top, unkempt nails with fungus. NEUROLOGIC: CN 2-12 grossly intact, no sensory deficit, normal cognition, normal speech, no tremor PSYCHIATRIC: alert cooperative and oriented to person, place and time. Principal Diagnosis Cellulitis of left leg Obesity Discharge Exam General- No acute distress Head- atraumatic Eyes- PERRL, EOMI, ENT- oropharynx clear Neck- supple, no JVD Lungs- clear to auscultation Heart- regular rhythm; no murmur Abdomen- normal bowel sounds, soft, nontender Extremities- no calf tenderness, +edema b/l, toes with black discoloration Neuro- alert, oriented x 3; PERRL, EOMI; no facial palsy; no dysarthria Skin- warm & dry Discharge Data Allergies Allergy/AdvReac Type Severity Reaction Status Date / Time Penicillins Allergy Unknown SHAKING/RICK Verified 07/11/21 19:54 SARA Consultations 07/11/21 19:53 ED Decision to Admit Stat 07/12/21 11:42 Consult Infectious Diseases Routine Ordered Studies 07/11/21 19:27 CT foot LT wo con Urgent US venous doppler LE LT Urgent 07/12/21 14:28 US ankle/brachial index ltd Routine 07/12/21 14:49 US venous doppler LE RT Urgent ULTRASOUND RIGHT LOWER EXTREMITY VENOUS CLINICAL HISTORY: Reported history of deep venous thrombosis. COMPARISON STUDY: No priors. TECHNIQUE: Real-time, grayscale, and color Doppler sonography of the deep veins of the right lower extremity was performed from the inguinal crease to the calf. Compression and augmentation were utilized. FINDINGS: There is no sonographic evidence of deep venous thrombosis identified in the right lower extremity. The common femoral, superficial femoral, and popliteal veins are patent and normally compressible. The greater saphenous vein and the profunda femoris vein at the junction with the common femoral vein are clear. The visualized calf veins are patent. IMPRESSION: There is no sonographic evidence of deep venous thrombosis identified in the right lower extremity. ACT 112: Negative or not required by law. Electronically signed by: Pritesh Garzon M.D. 07/12/2021 8:42 PM Dictated:07/12/212040 Transcribed: 07/12/212040 ULTRASOUND ANKLE-BRACHIAL INDICES CLINICAL HISTORY: Bilateral foot ulcers. COMPARISON STUDY: No priors. FINDINGS: Ankle-brachial indices were assessed in ultrasound. Right brachial pressure measures 107. Pressures in the right posterior tibial artery measure 137 for an GOLD of 1.28. The right dorsalis pedis was not compressible. Pressure in the left posterior tibial artery measures 147 for an GOLD of 1.37, and pressures in the left dorsalis pedis measure 116 for an GOLD of 1.08. IMPRESSION: 1. Ankle-brachial indices as above. 2. The right dorsalis pedis artery was noncompressible. Dictated: 07/12/2021 9:17 PM Transcribed: 07/12/2021 9:28 PM Romana [id number] Electronically signed by: Pritesh Garzon M.D. 07/12/2021 9:33 PM Dictated:07/12/212116 Transcribed: 07/12/212127 LEFT LOWER EXTREMITY VENOUS DOPPLER HISTORY: Acute pain and swelling of the left lower leg edema COMPARISON STUDY: None. FINDINGS: There is normal compressibility, flow, and augmentation within the left lower extremity deep venous system. The distal superficial femoral vein was unable to be compressed secondary to patient pain. Subcutaneous edema limits evaluation of the calf veins. Left inguinal chain lymph nodes measure up to 2.3 x 1.1 cm. IMPRESSION: No DVT within the left lower extremity. ACT 112: Negative or not required by law. Electronically signed by: Zelalem Calvillo M.D. 07/12/2021 6:35 AM Dictated:07/12/2134 Transcribed: 07/12/21633 CT foot LT wo con HISTORY: 75 years-old Male poss osteo acute pain with soft tissue swelling of the left foot. Clinical concern for possible osteomyelitis. COMPARISON: None TECHNIQUE: Multiple axial CT images of the left foot were obtained without the use of IV contrast. A dose lowering technique was used consistent with the principals of JEANETTE. FINDINGS: There is diffuse atrophy of the intrinsic musculature of the foot. Diffuse subcutaneous edema is marked within the dorsal tissues of the midfoot and forefoot. There is associated skin thickening with without drainable fluid collection. Arterial calcifications are noted. Tendons and ligaments are not well evaluated by CT technique. No gross tendon or ligamentous injury is identified. Multifocal osteoarthritis of the forefoot, midfoot and hindfoot is probably mild to moderate however is moderate within the midfoot. Moderate to large enthesophytes of the calcaneus. There is no acute fracture, dislocation or osseous erosion to suggest acute osteomyelitis. IMPRESSION: 1. No acute fracture, dislocation or osseous erosion to suggest acute osteomyelitis. 2. Diffuse subcutaneous edema, most pronounced within the dorsal midfoot and forefoot is noted along with skin thickening. This may represent cellulitis, venous stasis or lymphedema. 3. No abscess. 4. Atrophy of the musculature may be secondary to chronic denervation. ACT 112: Negative or not required by law. The above report was generated using voice recognition software. It may contain grammatical, syntax or spelling errors. Electronically signed by: Zelalem Calvillo M.D. 07/12/2021 8:12 AM Dictated:07/12/21 0806 Transcribed: 07/12/21805 Hospital Course (1) Cellulitis of left leg: Bilateral leg swelling for a long time Increased with redness and cellulitis since February of last year and may be longer than that Has been under care of [facility] wound care center Condition has been getting worse recently without any fever and/or chills She was sent in by home health nurse Wound care has been consulted Cont with broad spectrum abx started in the car Appreciate ID input and recommendation-daptomycin and meropenem for a total of 14 days, awaiting further recommendation depending on sensitivity and culture Patient is being followed of by thermal intelligence analyst and also wound care as an outpatient and will continue PT and OT evaluation for possible placement No evidence of DVTs-GOLD noted Cellulitis seems to be stable and there is no drainage from the wound Antibiotic has been changed to Keflex Has been getting PT and OT and likely to need placement on discharge Will continue to have outpatient wound care appointment and podiatry appointment Legs are looking much better today with decreasing redness and swelling without significant wheezing of any fluid Advised to keep the legs elevated over 1 or 2 pillows at night Likely to be discharged home with home health nurse today to complete a total 14 days course antibiotic Continue with outpatient podiatry and wound care management Obesity Advised diet and weight management (2) Multiple pulmonary emboli: Previously diagnosed, cont apixaban History of multiple pulmonary emboli Continue apixaban (3) DVT prophylaxis: Eliquis Full Code Disposition- Plan to discharge home with home health Total Time Total Time Spent Total Time Spent (In Minutes): 35 minutes Discharge Plan Discharge Items Patient Disposition: Home - Home Health Services Reason For Visit: LLE CELLULITIS Discharge Diagnosis: Cellulitis of left leg Obesity Condition on Discharge: Fair Activity: Resume your previous activity Non-emergency contact: Primary Care Provider Call non-emergency contact if: you have any medication questions Follow-up/Referrals: Adama Mejia MD [Primary Care Provider] - (Date & Time 07/21/2021 12:00 PM Provider Christine Hanna MD Department Family Practice, [place] ) Rhonda Colon DPM [Outside Practitioners] - (Date & Time 08/09/2021 2:10 PM Provider Rhonda Colon DPM Department Wound Care, [facility] ) Diet: Heart Healthy Addtl Attending Provider Instructions: Follow up with your primary care provider Dr. Psalms on 07/21/2021 @ 12:00 PM at the [facility] Follow up with your wound care clinic on 08/09/2021 @2:10 PM Rhonda Colon DPM Department Wound Care, [facility] Continue wound care with home health nurse Complete the course of the antibiotic with keflex Continue to keep the legs elevated over 1 or 2 pillows at night Seek medical attention if the infection in your leg worsening Fall precaution Pending Studies at Discharge: No Stand-Alone Forms: My [facility] Celsion, Smoking Cessation Medications and DC Order Prescriptions: New cephalexin 500 mg Capsule 500 mg PO QID 6 Days Qty: 24 RF: 0 Continued furosemide 40 mg tablet 40 mg PO BID RF: 0 omeprazole 40 mg capsule,delayed release(DR/EC) 40 mg PO DAILY RF: 0 acetaminophen [Tylenol Extra Strength] 500 mg Tablet 1,000 mg PO DIRECTED PRN (Reason: Pain) RF: 0 naproxen sodium [Aleve] 220 mg Tablet 220 - 440 mg PO DIRECTED PRN (Reason: Pain) RF: 0 Eliquis 5 mg tablet 5 mg PO BID RF: 0 Discharge Orders: Discharge Order (Routine); Ordered 07/18/21 Ordered By: Steph Dozier Admission Data Admit Date/Time: 07/11/21 19:50 Attending Provider: Stpeh Dozier Admit Provider: Keshia Brady Primary Care Provider: Adama Mejia Other Providers: Keshia Brady ; Abram Persaud ; Arnaldo Shane ; Alexis Willams I. ; Gerald Godoy II ; Brittany Pinzon ; Geovani Ryder ; Quinn Estes ; Azam Marin ; Jeanette,Home [facility] Other Interventions: Discharge Summary Assessment (RN) Last Done: 07/18/21 15:01
== END 2021-07-18 16:26 | disposition home health service (06) | DRG 603 ==
LOC: ED 17:32 → SUATTDRO 19:50 → 2W 19:50

== ENCOUNTER 2021-07-25 16:22 | Inpatient (IN) ==
--- NOTE | 2021-07-25 16:46 | Emergency Department Note ---
History of Present Illness General Chief complaint: Skin Problem Time Seen by Provider: 07/25/21 16:25 Source: patient Mode of arrival: EMS History of Present Illness Provider complaint: Left toe infection Onset (ago): month(s) Location: lower extremity and left Pain Consistency: + constant Maximum Pain Intensity: 5 Quality: + aching Relieved By: + none Associated symptoms: no chest pain, no cough, no fever/chills, no malaise, no nausea/vomiting or no shortness of breath This is a 75-year-old male with a history of chronic cellulitis to his legs for 4 years presenting by ambulance because his home health nurse looked at his foot today on the left side and felt that he should be evaluated. He is followed [facility] as well as a director orange there but he chose to come here. He does not know when the last time his home health nurse saw him. He states that he has had problems with that left foot for over a month and a half. He thinks he was on antibiotics about a month ago but does not know exactly what he was on. He believes he was given the antibiotic here. He states that his legs are much better since he was treated at that this hospital, although he does not remember when that was. He has had no fevers or chills, chest pain, shortness of breath, abdominal pain, nausea, vomiting, diarrhea or urinary symptoms. He states that he does not feel sick at all. He has some minor pain to the left foot. Home Medications Medication Instructions Recorded Confirmed Type acetaminophen 500 mg tablet 1,000 mg PO DIRECTED PRN 07/11/21 07/25/21 History (Tylenol Extra Strength) apixaban 5 mg tablet (Eliquis) 5 mg PO BID 07/11/21 07/25/21 History furosemide 40 mg tablet 40 mg PO BID 07/11/21 07/25/21 History naproxen sodium 220 mg tablet 220 - 440 mg PO DIRECTED PRN 07/11/21 07/25/21 History (Aleve) omeprazole 40 mg capsule,delayed 40 mg PO DAILY 07/11/21 07/25/21 History release cephalexin 500 mg capsule 500 mg PO QID 07/25/21 07/25/21 History dextromethorphan-guaifenesin 10 10 ml PO Q4H PRN 07/25/21 07/25/21 History mg-100 mg/5 mL oral syrup finasteride 5 mg tablet 5 mg PO DAILY 07/25/21 07/25/21 History Allergies Allergy/AdvReac Type Severity Reaction Status Date / Time metronidazole Allergy Intermediate BLISTERS-PER Verified 07/25/21 17:25 GMG Penicillins AdvReac Intermediate SHAKING/RICK Verified 07/25/21 17:25 SARA Past Med/Surg History Medical History Anemia BPH with obstruction/lower urinary tract symptoms Chronic diastolic CHF (congestive heart failure) Colovesical fistula Diverticulosis of colon Dyslipidemia H/O small bowel obstruction History of 2019 novel coronavirus disease (COVID-19) Lower extremity cellulitis Morbid obesity due to excess calories Multiple pulmonary emboli Nephrolithiasis OA (osteoarthritis) of knee Recurrent biliary colic Stasis dermatitis Venous insufficiency Venous stasis ulcer of right calf limited to breakdown of skin with varicose veins Surgical History History of partial surgical removal of colon History of tonsillectomy and adenoidectomy S/P colostomy takedown S/P hernia repair Family History Mother Hypertension Arthritis Social History Smoking Status: Never smoker Second Hand Exposure: No; Hx Alcohol Use: No Hx Substance Use: No Preferred Language: Polish Communication Ability: Effective Furnace Puncher Required: No Beliefs That Will Affect Care: None marital status: Single Current Living Situation: Family Current Living Situation Comment: Lives with brother Feels Safe at Home: Yes Assistive Devices: Cane and Walker Review of Systems See HPI for pertinent positives & negatives. and A total of 10 systems reviewed and were otherwise negative Physical Exam Vital Signs Vital Signs - 24 hr 07/25/21 16:32 07/25/21 17:29 07/25/21 19:04 Temperature 37 C Temperature Source Oral Pulse Rate 70 Pulse Rate [Right Finger] 68 63 Pulse Rhythm Regular Pulse Rhythm [Right Finger] Regular Regular Pulse Strength Normal Pulse Strength [Right Finger] Normal Respiratory Rate 20 18 20 Respiratory Effort / Characteristics Non-Labored Spontaneous Non-Labored Non-Labored Respiratory Depth Normal Normal Normal Respiratory Pattern Regular Blood Pressure 173/79 H Blood Pressure [Right Arm] 138/90 146/84 H Blood Pressure Mean 110 Blood Pressure Mean [Right Arm] 106 104 Blood Pressure Position Sitting Pulse Oximetry 98 97 99 Oxygen Delivery Method Room Air Room Air Sepsis Recent Fever Within 48 Hours No Sepsis New/Unexplained Change in Mental Status N/A Sepsis Action Taken by Nursing No Action Required Constitutional: Vital signs reviewed. Eyes: Pupils are equal round reactive to light. Conjunctiva are noninjected. ENT: Pharynx is clear without erythema or exudate. Mucous membranes are moist. Neck supple without meningeal signs. Respiratory: Clear to auscultation bilaterally. Breath sounds are equal bilaterally. Cardiovascular: Regular rate and rhythm. No rubs or gallops. GI: Soft, nondistended and nontender. Bowel sounds are present. Musculoskeletal: Bilateral lower extremity edema. There is erythema to both legs with slight increased warmth over the shins down to the toes. It is worse on the left side. Mild tenderness to the toes. Integumentary: No cyanosis. or jaundice. Neurological: The patient is awake and alert. No focal deficits. Psychiatric: Normal affect. Not anxious appearing. Medical Decision Making Differential Diagnosis Cellulitis, lymphedema, abscess, DVT, osteomyelitis Medical Records Attestation: I reviewed the patient's medical records. I did perform a limited focused review of portions of the patient's old chart on the electronic medical record. The patient was just admitted to the hospital July 11 for cellulitis to his legs. He was sent here by his home health nurse. He was placed on daptomycin and meropenem. ID was consulted and he was eventually switched to Keflex and discharged on the . He had a CT of the foot which showed no evidence of osteomyelitis or fracture. He had a Doppler of the left leg which showed no evidence of DVT. Home Medications Current Medication List: was personally reviewed by me Laboratory Data Attestation: I reviewed the patient's lab results. Result diagrams: 07/25/21 17:15 07/25/21 17:15 Lab Results 07/25/21 07/25/21 07/25/21 Range/Units 17:15 17:15 18:57 WBC 8.27 (4.8-10.8) K/uL RBC 4.30 L (4.7-6.1) M/uL Hgb 11.8 L (14.0-18.0) g/dL Hct 37.2 L (42-52) % MCV 86.5 (80-100) fL MCH 27.4 (25-34) pg MCHC 31.7 L (32-36) g/dL RDW Std Deviation 45.7 (36.4-46.3) fL RDW Coeff of Silvio 14.6 H (11.5-14.5) % Plt Count 296 (130-400) K/uL MPV 10.2 (7.4-10.4) fL Immature Gran % (Auto) 0.1 % Neut % (Auto) 62.2 % Lymph % (Auto) 22.4 % Mcleod % (Auto) 8.1 % Eos % (Auto) 6.7 % Baso % (Auto) 0.5 % Neut # (Auto) 5.15 (1.4-6.5) K/uL Lymph # (Auto) 1.85 (1.2-3.4) K/uL Mcleod # (Auto) 0.67 H (0.11-0.59) K/uL Eos # (Auto) 0.55 H (0-0.5) K/uL Baso # (Auto) 0.04 (0-0.2) K/uL Immature Gran # (Auto) 0.01 (0.00-0.02) K/uL Sodium 139 (136-145) mmol/L Potassium 3.4 L (3.5-5.1) mmol/L Chloride 104 (98-107) mmol/L Carbon Dioxide 25 (21-32) mmol/L Anion Gap 10 (3-11) BUN 24 H (6-23) mg/dl Creatinine 1.07 (0.6-1.4) mg/dl Est Cr Clr Drug Dosing 72.7 ml/min Est GFR ( Amer) 79.4 ml/min Est GFR (Non-Af Amer) 68.5 ml/min BUN/Creatinine Ratio 22.4 H (10-20) Glucose 86 (70-99(Fasting)) mg/dl Calcium 9.0 (8.5-10.1) mg/dl Total Bilirubin 0.5 (0.2-1.0) mg/dl AST 16 (13-39) U/L ALT 12 (7-52) U/L Alkaline Phosphatase 67 (34-104) U/L C-Reactive Protein 0.54 H (0-0.5) mg/dl Total Protein 7.8 (6.0-8.3) gm/dl Albumin 3.6 (3.4-5.0) gm/dl Globulin 4.2 H (2.5-4.0) gm/dl Albumin/Globulin Ratio 0.9 (0.9-2) SARS-CoV-2, RNA, NAAT NEGATIVE (NEGATIVE) MDM Narrative I did evaluate the patient as noted above. The patient is coming in because his home health nurse looked at his foot and felt that he should be evaluated in the hospital. He and his brother state that the foot does not look much different than when he was discharged from the hospital. He denies any systemic symptoms such as fevers or chills or malaise. His foot is malodorous with significant erythema. He apparently has a chronic cellulitis to both legs and lymphedema. He did finish a course of Keflex last week. IV access was established. I did order blood cultures. I did order and review the patient's blood work as noted in the electronic medical record. His white count is not elevated and he has no left shift on differential. His hemoglobin is 11.8. CMP demonstrates a potassium of 3.4. C-reactive protein is minimally elevated 0.54. I did discuss the test results with the patient and his brother. The patient's brother states that the wound care clinic is not doing much for him. He is also unable to drive himself and his brother is here as a patient and is generally has dolly driver. It would be very unlikely for him to be able to follow-up closely with the wound care clinic or a physician giving his only means of transportation is being admitted to the hospital for almost the same problem. At this time and felt most appropriate to hospitalize the patient given the degree of infection and lack of improvement of infection of his left leg. I did order a screening COVID test. I did discuss case with the hospitalist and piano case and bench assembler. I did hold off on antibiotic treatment as I do not have access to the records from the [facility] wound care clinic or infectious disease specialist. Impression & Plan Infection of left foot, Bilateral cellulitis of lower leg Discharge Plan Visit Data Chief Complaint: Skin Problem ED Provider: Petros Borges Discharge Problem: Infection of left foot, Bilateral cellulitis of lower leg Patient Disposition: Being Evaluated by Hospitalist Forms Stand Alone Forms: My [facility] Prescriptions Prescriptions: No Action dextromethorphan-guaifenesin [Robitussin-DM] 10-100 mg/5 mL Syrup 10 ml PO Q4H PRN (Reason: Cough) RF: 0 cephalexin 500 mg capsule 500 mg PO QID RF: 0 finasteride 5 mg Tablet 5 mg PO DAILY RF: 0 furosemide 40 mg tablet 40 mg PO BID RF: 0 omeprazole 40 mg capsule,delayed release(DR/EC) 40 mg PO DAILY RF: 0 acetaminophen [Tylenol Extra Strength] 500 mg Tablet 1,000 mg PO DIRECTED PRN (Reason: Pain) RF: 0 naproxen sodium [Aleve] 220 mg Tablet 220 - 440 mg PO DIRECTED PRN (Reason: Pain) RF: 0 Eliquis 5 mg tablet 5 mg PO BID RF: 0 Referrals Referrals: Adama Mejia MD [Primary Care Provider] -
[2021-07-25 17:43] LABS: Basophils # (auto) 0.04 K/uL (0-0.2); Basophils % (auto) 0.5 %; Eosinophils # (auto) 0.55 K/uL (0-0.5); Eosinophils % (auto) 6.7 %; Hematocrit (blood only) 37.2 % (42-52); Hemoglobin 11.8 g/dL (14.0-18.0); Immature Granulocytes # (auto) 0.01 K/uL (0.00-0.02); Immature Granulocytes % (auto) 0.1 %; Lymphocytes # (auto) 1.85 K/uL (1.2-3.4); Lymphocytes % (auto) 22.4 %; Mean Corpuscular Hemoglobin 27.4 pg (25-34); Mean Corpuscular Hgb Conc 31.7 g/dL (32-36); Mean Corpuscular Volume 86.5 fL (80-100); Mean Platelet Volume 10.2 fL (7.4-10.4); Monocytes # (auto) 0.67 K/uL (0.11-0.59); Monocytes % (auto) 8.1 %; Neutrophils # (auto) 5.15 K/uL (1.4-6.5); Neutrophils % (auto) 62.2 %; Platelet Count 296 K/uL (130-400); RDW Coefficient of Variation 14.6 % (11.5-14.5); RDW Standard Deviation 45.7 fL (36.4-46.3); White Blood Count 8.27 K/uL (4.8-10.8)
[2021-07-25 18:07] LABS: Albumin Globulin Ratio 0.9 (0.9-2); Albumin Level 3.6 gm/dl (3.4-5.0); BUN Creatinine Ratio 22.4 (10-20); Bilirubin,Total 0.5 mg/dl (0.2-1.0); C Reactive Protein 0.54 mg/dl (0-0.5); Creatinine Clr Calc Pharmacy 72.7 ml/min; Est GFR (African American) 79.4 ml/min; Est GFR (Non-African American) 68.5 ml/min; Globulin 4.2 gm/dl (2.5-4.0); Potassium 3.4 mmol/L (3.5-5.1); Total Protein 7.8 gm/dl (6.0-8.3)
[2021-07-25] MEDS ORDERED: POTASSIUM CHLORIDE CRTAB 20 MEQ TABCR PO STA (21:05)
[2021-07-25] MEDS ORDERED: MEROPENEM CONSULT ACTIVE PRN (23:23)
[2021-07-25] MEDS ORDERED: ACETAMINOPHEN 325 MG TAB PO PRN (23:23)
[2021-07-25] MEDS ORDERED: POLYETHYLENE (MIRALAX) 17 GM PACK PO PRN (23:23)
--- NOTE | 2021-07-26 00:24 | History and Physical Report ---
DATE OF ADMISSION: 07/25/2021. CHIEF COMPLAINT: Lower extremity wounds. HISTORY OF PRESENT ILLNESS: This is a 75-year-old male with past medical history significant for multiple PE, on Eliquis; morbid obesity; chronic diastolic CHF; venous insufficiency; hyperlipidemia; diverticulosis of colon; history of colovesical fistula; nephrolithiasis; BPH; hydronephrosis of right kidney; osteoarthritis; stasis dermatitis; history of small-bowel obstruction; history of recurrent biliary colic; history of COVID-19. Presents with ongoing lower extremity wounds. The patient was recently in the hospital with left leg cellulitis, initially treated with daptomycin and meropenem as ID recommended for a total of 14 days because of blood cultures growing bacillus species. He did fine and he was discharged on 07/18/2021 on Keflex. The patient's lower extremities, left foot infection is getting worse, it is swollen and some pain there on and off. His home health nurse looked at his foot and felt that he should come to evaluate it and he chose to come here. Denies any fevers. Currently, resting comfortably. He says he was able to walk on the legs. No headache, no neck pain, no back pain, no chest pain, no abdominal pain, no blurred visions, no earache, no runny nose, no sore throat, no cough. Appetite is okay. No dysphagia. He has some shortness of breath on exertion. No nausea. Normal bowel and bladder movements. Hemodynamics are stable. ALLERGIES: METRONIDAZOLE, PENICILLINS. PAST MEDICAL HISTORY: As mentioned above. PAST SURGICAL HISTORY: Colonoscopies, colostomy, cystoscopy with stent removal of the left ureter, EGD with endoscopic ultrasound, ERCP, partial removal of the colon, tonsillectomy and adenoidectomy, revision of colostomy, hernia repair, CV fistula repair. MEDICATIONS: The patient is on Tylenol Extra Strength 1000 mg p.o. p.r.n., Keflex 500 mg p.o. q.i.d., Robitussin DM 10 mL p.o. q. 4 hours p.r.n., Eliquis 5 mg p.o. b.i.d., finasteride 5 mg p.o. daily, Lasix 40 mg p.o. b.i.d., naproxen p.r.n., omeprazole 40 mg p.o. daily. FAMILY HISTORY: Significant for father has arthritis; mother has MN, arthritis, hypertension. SOCIAL HISTORY: He lives with his brother and his brother's . No smoking, no alcohol, no drug use. REVIEW OF SYSTEMS: As per HPI. Rest of the review of systems is negative. PHYSICAL EXAMINATION: GENERAL: The patient is morbidly obese, not in acute distress. VITAL SIGNS: Temperature 37, pulse 63, respiratory rate 20, blood pressure 146/84, oxygen 99% on room air. HEENT: Pupils equal, round and reactive to light. Oral mucosa moist. NECK: No JVD. No neck masses. CARDIOVASCULAR: S1 and S2 heard. Regular rate and rhythm. No murmur, no gallop. RESPIRATORY SYSTEM: Normal AP diameter. No accessory muscle use. No wheezing, no crackles. ABDOMEN: Soft, bowel sounds present, nontender, no distention. CENTRAL NERVOUS SYSTEM: Cranial nerves II-XII grossly intact, nonfocal. EXTREMITIES: Bilateral lower extremity edema present, swollen. Chronic skin changes with dry skin. The left foot is somewhat erythematous and also open ulcer seen in between the toes. LABORATORY DATA: WBC 8.2, hemoglobin 11.8, hematocrit 37.2, platelets 296. Sodium 139, potassium 3.4, chloride 104, bicarb 25, BUN 24, creatinine 1.07, serum glucose 86, calcium 9, total bilirubin 0.5, AST 16, ALT 12, alkaline phosphatase 67. C-reactive protein 0.5. SARS-CoV-2 rapid test negative. ASSESSMENT AND PLAN: This is a 75-year-old male who presents with ongoing lower extremity wounds. 1. Lower extremity wounds, left foot ongoing infection: Last time blood cultures grew bacillus, was discharged on Keflex on 07/18/2021. Comes with worsening left foot infection. Last time, ID recommend daptomycin and meropenem, which will be placed. Will get wound cultures. Podiatry consult, wound care consult. Monitor in the hospital for response. May consult ID again. 2. History of chronic diastolic congestive heart failure: Continue his home Lasix. As per Epic, he is also on potassium supplements. May need to be discharged on potassium supplements. 3. History of benign prostatic hypertrophy: Continue Flomax. 4. Gastroesophageal reflux disease: Continue omeprazole. 5. History of multiple pulmonary emboli: Continue his Eliquis. 6. Obesity: Needs counseling. 7. Deep venous thrombosis prophylaxis: On Eliquis. DISPOSITION: Level 1 full code. Admit to medical floor. Expect to discharge home with home health versus correction facility. Job ID: [id number] [facility]
[2021-07-26] MEDS: APIXABAN 5 MG TABLET PO SCH ×3 (00:59→19:56)
[2021-07-26] MEDS: FUROSEMIDE 40 MG TAB PO SCH ×3 (00:59→16:47)
[2021-07-26] MEDS: DAPTOmycin 350 MG in SYRINGE 0 ML IV SCH (01:00)
[2021-07-26] MEDS: MEROPENEM 500 MG in SYRINGE 0 ML IV SCH ×4 (01:17→17:49)
[2021-07-26 05:48] LABS: Basophils # (auto) 0.04 K/uL (0-0.2); Basophils % (auto) 0.5 %; Eosinophils # (auto) 0.56 K/uL (0-0.5); Eosinophils % (auto) 6.4 %; Hematocrit (blood only) 36.5 % (42-52); Hemoglobin 11.5 g/dL (14.0-18.0); Immature Granulocytes # (auto) 0.02 K/uL (0.00-0.02); Immature Granulocytes % (auto) 0.2 %; Lymphocytes # (auto) 1.77 K/uL (1.2-3.4); Lymphocytes % (auto) 20.2 %; Mean Corpuscular Hemoglobin 27.3 pg (25-34); Mean Corpuscular Hgb Conc 31.5 g/dL (32-36); Mean Corpuscular Volume 86.7 fL (80-100); Mean Platelet Volume 9.8 fL (7.4-10.4); Monocytes # (auto) 0.58 K/uL (0.11-0.59); Monocytes % (auto) 6.6 %; Neutrophils % (auto) 66.1 %; Platelet Count 265 K/uL (130-400); RDW Coefficient of Variation 14.5 % (11.5-14.5); RDW Standard Deviation 46.1 fL (36.4-46.3); Red Blood Count 4.21 M/uL (4.7-6.1); White Blood Count 8.77 K/uL (4.8-10.8)
[2021-07-26 06:25] LABS: BUN Creatinine Ratio 23.8 (10-20); Calcium 8.8 mg/dl (8.5-10.1); Creatinine Clr Calc Pharmacy 76.9 ml/min; Est GFR (African American) 85.1 ml/min; Est GFR (Non-African American) 73.4 ml/min; Magnesium 1.9 mg/dl (1.7-2.4); Potassium 3.3 mmol/L (3.5-5.1)
[2021-07-26] MEDS: FINASTERIDE 5 MG TAB PO SCH (08:25)
[2021-07-26] MEDS: PANTOprazole 40 MG TAB PO SCH (08:25)
[2021-07-26] MEDS ORDERED: POTASSIUM CHLORIDE CRTAB 20 MEQ TABCR PO STA (08:33)
--- NOTE | 2021-07-26 15:44 | Podiatry Consultation ---
Date of Consultation July 26, 2021 Assessment & Plan (1) Cellulitis: Laterality: left Site of cellulitis: extremity Site of cellulitis of extremity: lower extremity Qualified Code(s): L03.116 - Cellulitis of left lower limb (2) Cellulitis of left leg: (3) Pedal edema: (4) Infection of left foot: Left lower extremity cellulitis, r/o abscess of dorsal foot - With significant lymphedema, this could be the source of his cellulitis alone. - MRI could rule out need for surgical I&D of abscess to left foot. If present, will plan on surgery prior to discharge. - If no abscess and no open wound, would recommend continued treatment of lower extremity edema with compression and medical management of fluids as necessary. - Will continue to follow. Thanks for the consult. History of Present Illness Reason for Consultation: Left foot infection Requesting Physician: Dr. Dozier Attending Physician: Steph Dozier MD History of Present Illness Recently readmitted with worsening left lower extremity cellulitis. Patient states that his left foot is increasingly painful, swollen, red, and warm. He had been taking oral antibiotics, though finished them recently and now noticed the leg getting worse again. He denies any injury or trauma and had not been performing any wound care to the foot. He had also not been wearing compression at home. Allergies Allergy/AdvReac Type Severity Reaction Status Date / Time metronidazole Allergy Intermediate BLISTERS-PER Verified 07/25/21 17:25 [facility] Penicillins AdvReac Intermediate SHAKING/RICK Verified 07/25/21 17:25 [facility] Medications Medication Instructions Recorded Confirmed Type acetaminophen 500 mg tablet 1,000 mg PO DIRECTED PRN 07/11/21 07/25/21 History (Tylenol Extra Strength) apixaban 5 mg tablet (Eliquis) 5 mg PO BID 07/11/21 07/25/21 History furosemide 40 mg tablet 40 mg PO BID 07/11/21 07/25/21 History naproxen sodium 220 mg tablet 220 - 440 mg PO DIRECTED PRN 07/11/21 07/25/21 History (Aleve) omeprazole 40 mg capsule,delayed 40 mg PO DAILY 07/11/21 07/25/21 History release cephalexin 500 mg capsule 500 mg PO QID 07/25/21 07/25/21 History dextromethorphan-guaifenesin 10 10 ml PO Q4H PRN 07/25/21 07/25/21 History mg-100 mg/5 mL oral syrup finasteride 5 mg tablet 5 mg PO DAILY 07/25/21 07/25/21 History Patient History Medical History Anemia BPH with obstruction/lower urinary tract symptoms Chronic diastolic CHF (congestive heart failure) Colovesical fistula Diverticulosis of colon Dyslipidemia H/O small bowel obstruction History of 2019 novel coronavirus disease (COVID-19) Lower extremity cellulitis Morbid obesity due to excess calories Multiple pulmonary emboli Nephrolithiasis OA (osteoarthritis) of knee Recurrent biliary colic Stasis dermatitis Venous insufficiency Venous stasis ulcer of right calf limited to breakdown of skin with varicose veins Surgical History History of partial surgical removal of colon History of tonsillectomy and adenoidectomy S/P colostomy takedown S/P hernia repair Family History Mother Hypertension Arthritis Social History Smoking Status: Former smoker Second Hand Exposure: No; Do You Dip or Chew Tobacco: No; Hx Alcohol Use: No Hx Substance Use: No Preferred Language: Malawian Communication Ability: Effective Fatback Trimmer Required: No Beliefs That Will Affect Care: None marital status: Single Current Living Situation: Family Current Living Situation Comment: lives with brother and [id number] Other Information That Helps Us Care for You: No Feels Safe at Home: Yes Safety Concerns: Feels Safe At This Time Assistive Devices: Glasses and Walker Review of Systems Review of Systems: All systems reviewed & are unremarkable except as noted in HPI & below Constitutional: as per Subjective / HPI Ear, Nose, Mouth, Throat: + ear pain Respiratory: as per Subjective / HPI Cardiovascular: as per Subjective / HPI Gastrointestinal: as per Subjective / HPI Genitourinary: + as per Subjective / HPI Integumentary: + erythema, + dry skin and + skin swelling; no new lesions and no wounds Neurologic: + generalized weakness, + loss of sensation and + numbness; no dizziness and no memory loss Psychiatric: as per Subjective / HPI Endocrine: as per Subjective / HPI Physical Exam Physical Exam: CV: DP/PT pulses faintly palpable, secondary to overlying edema. Bilateral lower extremity edematous, +2 pitting. CFT is brisk. No hair growth noted distally. No distal cooling. Skin is atrophic otherwise. Skin: Nails dystrophic. No open lesions. Interdigital maceration noted; likely p ortal of entry for his cellulitis. Left lower extremity diffusely erythematous with calor ascending to tibia. No obvious wound/ulceration noted otherwise. Neuro: Gross sensation decreased. No abnormal reflexes. MSK: Muscle strength decreased to bilateral lower extremity diffusely. Minimal hallux valgus and hammertoe formation with no pain or crepitus on range of motion. Dorsum of bilateral foot has palpable fluctuance, possibly consistent with either cyst or abscess. Constitutional: WD/WN, vitals as above well developed, well nourished, + acute distress, + ill appearing, + morbidly obese and + lethargic Eyes: PERRL, conjunctivae normal, anicteric sclerae ENMT: external ear and nose normal, oropharynx normal Respiratory: normal respiratory effort, lungs clear to auscultation Cardiovascular: Rate/Rhythm: regular rate and regular rhythm Extremities: normal capillary refill and + pedal edema; no calf tenderness Gastrointestinal (Abdomen): normal bowel sounds, soft, nontender, no hepatosplenomegaly Musculoskeletal: Extremities: + limited ROM of extremities and + foot abnormality (As described above) Left Skin: no rashes, warm and dry Psychiatric: A+Ox3, euthymic affect Results & Data ([facility]) Vital Signs (Past 12 Hours) Vital Signs Temp Pulse Pulse Resp BP BP Pulse Ox 07/26/21 14:47 36.4 C L 72 20 112/69 98 07/26/21 12:14 36.6 C 67 20 136/80 99 07/26/21 07:48 37.2 C 90 20 114/82 94 07/26/21 06:11 66 07/26/21 04:00 36.4 C 58 L 18 135/78 97 Diagnostic Findings MRI Pending
--- NOTE | 2021-07-26 19:30 | Hospitalist Progress Note ---
Date of Service July 26, 2021 Assessment & Plan (1) Infection of left foot: Plan: Present on admission for worsening left foot wound Recently completed course of antibiotic with Keflex Currently on Daptomycin and Meropenem IV Podiatry on board Case discussed with Podiatry dr. Del Angel that recommended to get MRI of left foot Wound care nurse on board Continue daily wound care Wound cx pending Continue monitor closely Obesity BMI 39 Counseling on weight loss Hx Multiple pulmonary emboli: Continue apixaban DVT prophylaxis: Harriet Full Code Admission and Anticipated Discharge Date Admission Date: July 25, 2021 Subjective Pt was seen and examined for follow up of wound in the left toes Lying in bed with no acute distress Pt said that wound in right foot improves, but the left foot got worst Denies any chest pain, palpitation, dizziness and SOB Review of Systems Review of Systems: All systems reviewed & are unremarkable except as noted in Subjective Physical Exam Physical Exam: General- No acute distress Head- atraumatic Eyes- PERRL, EOMI, ENT- oropharynx clear Neck- supple, no JVD Lungs- clear to auscultation Heart- regular rhythm; no murmur Abdomen- normal bowel sounds, soft, nontender Extremities- no calf tenderness, +edema b/l, maceration noted between toes, Neuro- alert, oriented x 3; PERRL, EOMI; no facial palsy; no dysarthria Skin- warm & dry Results & Data Results & Data ([facility]) Vital Signs (Past 12 Hours) Vital Signs Temp Pulse Pulse Resp BP BP Pulse Ox 07/26/21 14:47 36.4 C L 72 20 112/69 98 07/26/21 14:19 74 07/26/21 12:14 36.6 C 67 20 136/80 99 07/26/21 07:48 37.2 C 90 20 114/82 94
[2021-07-26] MEDS: EUCERIN CR 120 GM JAR EXT SCH (19:56)
[2021-07-27] MEDS: DAPTOmycin 350 MG in SYRINGE 0 ML IV SCH ×2 (00:19→23:34)
[2021-07-27] MEDS: MEROPENEM 500 MG in SYRINGE 0 ML IV SCH ×5 (00:19→23:34)
[2021-07-27 07:01] LABS: Hematocrit (blood only) 36.6 % (42-52); Hemoglobin 11.6 g/dL (14.0-18.0); Mean Corpuscular Hgb Conc 31.7 g/dL (32-36); Mean Corpuscular Volume 85.1 fL (80-100); Mean Platelet Volume 10.2 fL (7.4-10.4); Platelet Count 298 K/uL (130-400); RDW Coefficient of Variation 14.6 % (11.5-14.5); RDW Standard Deviation 45.8 fL (36.4-46.3); White Blood Count 8.84 K/uL (4.8-10.8)
[2021-07-27 07:26] LABS: BUN Creatinine Ratio 22.3 (10-20); Calcium 8.7 mg/dl (8.5-10.1); Est GFR (African American) 83.1 ml/min; Est GFR (Non-African American) 71.7 ml/min; Potassium 3.6 mmol/L (3.5-5.1)
[2021-07-27] MEDS: FINASTERIDE 5 MG TAB PO SCH (08:33)
[2021-07-27] MEDS: PANTOprazole 40 MG TAB PO SCH (08:33)
[2021-07-27] MEDS: FUROSEMIDE 40 MG TAB PO SCH ×2 (08:33→16:40)
[2021-07-27] MEDS: EUCERIN CR 120 GM JAR EXT SCH ×2 (08:33→19:58)
[2021-07-27] MEDS: APIXABAN 5 MG TABLET PO SCH ×2 (08:33→19:57)
--- NOTE | 2021-07-27 11:42 | Magnetic Resonance Report ---
MRI OF THE LEFT FOREFOOT WITHOUT IV CONTRAST CLINICAL HISTORY: Left foot infection. Clinical concern for osteomyelitis. COMPARISON STUDY: CT of the left foot dated 07/11/2021. TECHNIQUE: MRI of the left forefoot is performed utilizing various T1 and T2-weighted sequences in th e axial, sagittal, and coronal planes. IV contrast was not administered for this examination. Note th at interpretation is suboptimal without plain film correlate. FINDINGS: There is no MRI evidence of fracture. There is no marrow edema identified throughout the fo refoot typical for osteomyelitis. Mild degenerative changes noted in the forefoot and midfoot. The Li sfranc ligament is intact. Diffuse soft tissue edema is present throughout the forefoot, greatest carl matthew. No organized fluid collection is identified. Imaged portions of the flexor and extensor tendon s appear intact. Visualized portions of the plantar fascia appear maintained. The regional musculatur e appears atrophic. IMPRESSION: 1. There is no marrow abnormality identified in the forefoot typical for osteomyelitis. 2. There is diffuse soft tissue edema of the forefoot, greatest dorsally. Correlate clinically for ev idence of cellulitis. 3. There is no organized fluid collection seen to suggest abscess. Dictated: 07/27/2021 11:01 AM Transcribed: 07/27/2021 11:11 AM Lisa [id number] CHIQUIS_Michelet Electronically signed by: Pritesh Garzon M.D. 07/27/2021 11:41 AM
--- NOTE | 2021-07-28 01:28 | Hospitalist Progress Note ---
Date of Service July 27, 2021 Assessment & Plan (1) Infection of left foot: Plan: Present on admission for worsening left foot wound MRI of left foot showed no marrow abnormality identified in the forefoot typical for osteomyelitis.There is diffuse soft tissue edema of the forefoot, greatest dorsally. Recently completed course of antibiotic with Keflex Wound cx grew gram negative bacilli Currently on Daptomycin and Meropenem IV Podiatry on board Wound care nurse on board Continue daily wound care Continue monitor closely Obesity BMI 39 Counseling on weight loss Hx Multiple pulmonary emboli: Continue apixaban DVT prophylaxis: Harriet Full Code Admission and Anticipated Discharge Date Admission Date: July 25, 2021 Subjective Pt was seen and examined for follow up of wound in the left toes Lying in bed with no acute distress Denies any chest pain, palpitation, dizziness and SOB Review of Systems Review of Systems: All systems reviewed & are unremarkable except as noted in Subjective Physical Exam Physical Exam: General- No acute distress Head- atraumatic Eyes- PERRL, EOMI, ENT- oropharynx clear Neck- supple, no JVD Lungs- clear to auscultation Heart- regular rhythm; no murmur Abdomen- normal bowel sounds, soft, nontender Extremities- no calf tenderness, +edema b/l, maceration noted between toes, Neuro- alert, oriented x 3; PERRL, EOMI; no facial palsy; no dysarthria Skin- warm & dry Results & Data Results & Data ([facility]) Vital Signs (Past 12 Hours) Vital Signs Temp Pulse Pulse Resp BP Pulse Ox 07/27/21 23:52 36.3 C L 63 18 124/78 98 07/27/21 22:17 54 L 07/27/21 18:28 36.8 C 65 18 131/64 98 07/27/21 16:08 71 07/27/21 15:51 36.8 C 56 L 18 119/68 99
[2021-07-28] MEDS: MEROPENEM 500 MG in SYRINGE 0 ML IV SCH ×2 (05:46→12:35)
[2021-07-28] MEDS: EUCERIN CR 120 GM JAR EXT SCH ×2 (08:27→20:52)
[2021-07-28] MEDS: APIXABAN 5 MG TABLET PO SCH ×2 (08:27→20:52)
[2021-07-28] MEDS: FINASTERIDE 5 MG TAB PO SCH (08:27)
[2021-07-28] MEDS: PANTOprazole 40 MG TAB PO SCH (08:27)
[2021-07-28] MEDS: FUROSEMIDE 40 MG TAB PO SCH ×2 (08:27→17:39)
--- NOTE | 2021-07-28 13:01 | Progress Note ---
Date of Service July 28, 2021 Assessment & Plan (1) Cellulitis: Laterality: left Site of cellulitis: extremity Site of cellulitis of extremity: lower extremity Qualified Code(s): L03.116 - Cellulitis of left lower limb (2) Cellulitis of left leg: (3) Pedal edema: (4) Infection of left foot: Plan: Left lower extremity cellulitis, - No abscess formation and no osteomyelitis noted. No surgery planned. - Patient is improving with antibiotics. Can d/c home from podiatry standpoint. - Can see outpatient for foot care overall; would benefit from seeing a senior research manager every 9 weeks. - Will sign off for now, with recommendation for outpatient follow-up. If he is dc to [facility], he thought this could be [facility] in [place] or [facility] in [place], both facilities have foot doctors who work there on a regular basis. Admission and Anticipated Discharge Date Admission Date: July 25, 2021 Subjective Patient seen at bedside. Doing well; no new complaints. Feeling better with de creasing swelling and symptoms of infection. Review of Systems Review of Systems: All systems reviewed & are unremarkable except as noted in HPI & below Physical Exam Physical Exam: CV: DP/PT pulses faintly palpable, secondary to overlying edema. Bilateral lower extremity edematous, +2 pitting, improved since admission. CFT is brisk. No hair growth noted distally. No distal cooling. Skin is atrophic otherwise. Skin: Nails dystrophic. No open lesions. Interdigital maceration noted; likely portal of entry for his cellulitis. Left lower extremity diffusely erythematous with calor ascending to tibia. No obvious wound/ulceration noted otherwise. Neuro: Gross sensation decreased. No abnormal reflexes. MSK: Muscle strength decreased to bilateral lower extremity diffusely. Minimal hallux valgus and hammertoe formation with no pain or crepitus on range of motion. Dorsum of bilateral foot has palpable fluctuance, possibly consistent with either cyst or abscess. Constitutional: WD/WN, vitals as above well developed, well nourished, + acute distress, + ill appearing, + morbidly obese and + lethargic Eyes: PERRL, conjunctivae normal, anicteric sclerae ENMT: external ear and nose normal, oropharynx normal Respiratory: normal respiratory effort, lungs clear to auscultation Cardiovascular: Rate/Rhythm: regular rate and regular rhythm Extremities: normal capillary refill and + pedal edema; no calf tenderness Gastrointestinal (Abdomen): normal bowel sounds, soft, nontender, no hepatosplenomegaly Musculoskeletal: Extremities: + limited ROM of extremities and + foot abnormality (As described above) Skin: no rashes, warm and dry Psychiatric: A+Ox3, euthymic affect Results & Data ([facility]) Vital Signs (Past 12 Hours) Vital Signs Temp Pulse Pulse Resp BP Pulse Ox 07/28/21 11:23 36.6 C 77 20 122/74 96 07/28/21 08:11 62 07/28/21 07:37 36.7 C 70 20 132/80 96 07/28/21 02:59 36.4 C L 64 16 120/70 95 Diagnostic Findings MRI Reviewed. No drainable abscess identified. No bone involvement noted. No significant deep ulceration noted. Findings more consistent with his profound edema and cellulitis
[2021-07-28] MEDS: CIPROFLOXACIN 250 MG TAB PO SCH (17:39)
--- NOTE | 2021-07-28 22:36 | Hospitalist Progress Note ---
Date of Service July 28, 2021 Assessment & Plan (1) Infection of left foot: Plan: Present on admission for worsening left foot wound MRI of left foot showed no marrow abnormality identified in the forefoot typical for osteomyelitis.There is diffuse soft tissue edema of the forefoot, greatest dorsally. Recently completed course of antibiotic with Keflex Wound cx grew gram negative bacilli on Daptomycin and Meropenem IV, will transition to PO cipro on discharge Podiatry on board Wound care nurse on board Continue daily wound care Will need to follow up with the wound care clinic [place] from podiatry standpoint to discharge Obesity BMI 39 Counseling on weight loss Hx Multiple pulmonary emboli: Continue apixaban DVT prophylaxis: Harriet Full Code Admission and Anticipated Discharge Date Admission Date: July 25, 2021 Subjective Pt was seen and examined for follow up of wound in the left toes Sitting in chair with no acute distress Left foot wound improves significantly Denies any chest pain, palpitation, dizziness and SOB Review of Systems Review of Systems: All systems reviewed & are unremarkable except as noted in Subjective Physical Exam Physical Exam: General- No acute distress Head- atraumatic Eyes- PERRL, EOMI, ENT- oropharynx clear Neck- supple, no JVD Lungs- clear to auscultation Heart- regular rhythm; no murmur Abdomen- normal bowel sounds, soft, nontender Extremities- no calf tenderness, +edema b/l, maceration noted between toes, Neuro- alert, oriented x 3; PERRL, EOMI; no facial palsy; no dysarthria Skin- warm & dry Results & Data Results & Data ([facility]) Vital Signs (Past 12 Hours) Vital Signs Temp Pulse Resp BP Pulse Ox 07/28/21 18:25 36.7 C 66 18 151/76 H 99 07/28/21 15:09 36.4 C L 64 18 116/72 98 07/28/21 11:23 36.6 C 77 20 122/74 96
[2021-07-29] MEDS: CIPROFLOXACIN 250 MG TAB PO SCH ×2 (06:15→17:08)
[2021-07-29 08:25] LABS: Creatinine Clr Calc Pharmacy 72.8 ml/min; Est GFR (African American) 80.3 ml/min; Est GFR (Non-African American) 69.3 ml/min
[2021-07-29] MEDS: guaiFENesin/DEXTROM SYRUP 200MG/20MG 10ML UDC PO PRN (08:25)
[2021-07-29] MEDS: APIXABAN 5 MG TABLET PO SCH ×2 (08:25→21:29)
[2021-07-29] MEDS: PANTOprazole 40 MG TAB PO SCH (08:25)
[2021-07-29] MEDS: FINASTERIDE 5 MG TAB PO SCH (08:25)
[2021-07-29] MEDS: FUROSEMIDE 40 MG TAB PO SCH ×2 (08:25→17:07)
[2021-07-29] MEDS: EUCERIN CR 120 GM JAR EXT SCH ×2 (08:27→21:28)
--- NOTE | 2021-07-29 23:18 | Hospitalist Progress Note ---
Date of Service July 29, 2021 Assessment & Plan (1) Infection of left foot: Plan: Present on admission for worsening left foot wound MRI of left foot showed no marrow abnormality identified in the forefoot typical for osteomyelitis.There is diffuse soft tissue edema of the forefoot, greatest dorsally. Recently completed course of antibiotic with Keflex Wound cx grew gram negative bacilli on Daptomycin and Meropenem IV, will transition to PO cipro on discharge Podiatry on board Wound care nurse on board Continue daily wound care Will need to follow up with the wound care clinic [place] from podiatry standpoint to discharge Obesity BMI 39 Counseling on weight loss Hx Multiple pulmonary emboli: Continue apixaban DVT prophylaxis: Harriet Full Code Admission and Anticipated Discharge Date Admission Date: July 25, 2021 Subjective Pt was seen and examined for follow up of wound in the left toes Sitting in chair with no acute distress Pt said that he feels fine today He does not have a ride to take him home today His brother is admitted in the hospital and plan to discharge tomorrow Denies any chest pain, palpitation, dizziness and SOB Review of Systems Review of Systems: All systems reviewed & are unremarkable except as noted in Subjective Physical Exam Physical Exam: General- No acute distress Head- atraumatic Eyes- PERRL, EOMI, ENT- oropharynx clear Neck- supple, no JVD Lungs- clear to auscultation Heart- regular rhythm; no murmur Abdomen- normal bowel sounds, soft, nontender Extremities- no calf tenderness, +edema b/l, maceration noted between toes, Neuro- alert, oriented x 3; PERRL, EOMI; no facial palsy; no dysarthria Skin- warm & dry Results & Data Results & Data ([facility]) Vital Signs (Past 12 Hours) Vital Signs Temp Pulse Pulse Resp BP Pulse Ox 07/29/21 19:07 36.9 C 60 20 131/74 98 07/29/21 16:54 64 07/29/21 15:02 36.2 C L 73 18 118/77 98
[2021-07-30] MEDS: CIPROFLOXACIN 250 MG TAB PO SCH (05:54)
[2021-07-30] MEDS: FUROSEMIDE 40 MG TAB PO SCH (08:00)
[2021-07-30] MEDS: APIXABAN 5 MG TABLET PO SCH (08:00)
[2021-07-30] MEDS: PANTOprazole 40 MG TAB PO SCH (08:00)
[2021-07-30] MEDS: FINASTERIDE 5 MG TAB PO SCH (08:00)
[2021-07-30] MEDS: EUCERIN CR 120 GM JAR EXT SCH (08:01)
[2021-07-30] MEDS: guaiFENesin/DEXTROM SYRUP 200MG/20MG 10ML UDC PO PRN (08:03)
--- NOTE | 2021-07-30 12:34 | Discharge Summary ---
Date of Service July 30, 2021 Admission HPI Per Admitting Provider CHIEF COMPLAINT: Lower extremity wounds. HISTORY OF PRESENT ILLNESS: This is a 75-year-old male with past medical history significant for multiple PE, on Eliquis; morbid obesity; chronic diastolic CHF; venous insufficiency; hyperlipidemia; diverticulosis of colon; history of colovesical fistula; nephrolithiasis; BPH; hydronephrosis of right kidney; osteoarthritis; stasis dermatitis; history of small-bowel obstruction; history of recurrent biliary colic; history of COVID-19. Presents with ongoing lower extremity wounds. The patient was recently in the hospital with left leg cellulitis, initially treated with daptomycin and meropenem as ID recommended for a total of 14 days because of blood cultures growing bacillus species. He did fine and he was discharged on 07/18/2021 on Keflex. The patient's lower ex tremities, left foot infection is getting worse, it is swollen and some pain there on and off. His home health nurse looked at his foot and felt that he should come to evaluate it and he chose to come here. Denies any fevers. Currently, resting comfortably. He says he was able to walk on the legs. No headache, no neck pain, no back pain, no chest pain, no abdominal pain, no blurred visions, no earache, no runny nose, no sore throat, no cough. Appetite is okay. No dysphagia. He has some shortness of breath on exertion. No nausea. Normal bowel and bladder movements. Hemodynamics are stable. Admission Exam Per Admitting Provider GENERAL: The patient is morbidly obese, not in acute distress. VITAL SIGNS: Temperature 37, pulse 63, respiratory rate 20, blood pressure 146/84, oxygen 99% on room air. HEENT: Pupils equal, round and reactive to light. Oral mucosa moist. NECK: No JVD. No neck masses. CARDIOVASCULAR: S1 and S2 heard. Regular rate and rhythm. No murmur, no gallop. RESPIRATORY SYSTEM: Normal AP diameter. No accessory muscle use. No wheezing, no crackles. ABDOMEN: Soft, bowel sounds present, nontender, no distention. CENTRAL NERVOUS SYSTEM: Cranial nerves II-XII grossly intact, nonfocal. EXTREMITIES: Bilateral lower extremity edema present, swollen. Chronic skin changes with dry skin. The left foot is somewhat erythematous and also open ulcer seen in between the toes. Principal Diagnosis Infection of left foot: Lower extremity swelling Obesity Hx Multiple pulmonary emboli: Discharge Exam General- No acute distress Head- atraumatic Eyes- PERRL, EOMI, ENT- oropharynx clear Neck- supple, no JVD Lungs- clear to auscultation Heart- regular rhythm; no murmur Abdomen- normal bowel sounds, soft, nontender Extremities- no calf tenderness, +edema b/l, maceration noted between toes, Neuro- alert, oriented x 3; PERRL, EOMI; no facial palsy; no dysarthria Skin- warm & dry Discharge Data Allergies Allergy/AdvReac Type Severity Reaction Status Date / Time metronidazole Allergy Intermediate BLISTERS-PER Verified 07/25/21 17:25 GMG Penicillins AdvReac Intermediate SHAKING/RICK Verified 07/25/21 17:25 SARA Consultations 07/25/21 19:13 ED Decision to Admit Stat 07/26/21 08:00 Consult Podiatry Routine Ordered Studies 07/27/21 00:13 MR foot LT w/o con Routine MRI OF THE LEFT FOREFOOT WITHOUT IV CONTRAST CLINICAL HISTORY: Left foot infection. Clinical concern for osteomyelitis. COMPARISON STUDY: CT of the left foot dated 07/11/2021. TECHNIQUE: MRI of the left forefoot is performed utilizing various T1 and T2- weighted sequences in the axial, sagittal, and coronal planes. IV contrast was not administered for this examination. Note that interpretation is suboptimal without plain film correlate. FINDINGS: There is no MRI evidence of fracture. There is no marrow edema identified throughout the forefoot typical for osteomyelitis. Mild degenerative changes noted in the forefoot and midfoot. The Lisfranc ligament is intact. Diffuse soft tissue edema is present throughout the forefoot, greatest dorsally. No organized fluid collection is identified. Imaged portions of the flexor and extensor tendons appear intact. Visualized portions of the plantar fascia appear maintained. The regional musculature appears atrophic. IMPRESSION: 1. There is no marrow abnormality identified in the forefoot typical for osteomyelitis. 2. There is diffuse soft tissue edema of the forefoot, greatest dorsally. Correlate clinically for evidence of cellulitis. 3. There is no organized fluid collection seen to suggest abscess. Dictated: 07/27/2021 11:01 AM Transcribed: 07/27/2021 11:11 AM Lisa [id number] [email or web address]_Michelet Electronically signed by: Pritesh Garzon M.D. 07/27/2021 11:41 AM Dictated:07/27/21 1101 Transcribed: 07/27/21 1111 Hospital Course (1) Infection of left foot: Present on admission for worsening left foot wound MRI of left foot showed no marrow abnormality identified in the forefoot typical for osteomyelitis.There is diffuse soft tissue edema of the forefoot, greatest dorsally. Recently completed course of antibiotic with Keflex Wound cx grew gram negative bacilli on Daptomycin and Meropenem IV, will transition to PO cipro on discharge Podiatry on board Wound care nurse on board Continue daily wound care Will need to follow up with the wound care clinic Ok from podiatry standpoint to discharge Obesity BMI 39 Counseling on weight loss Hx Multiple pulmonary emboli: Continue apixaban DVT prophylaxis: Eliquis Full Code Total Time Total Time Spent Total Time Spent (In Minutes): 35 minutes Discharge Plan Discharge Items Patient Disposition: Home - Home Health Services Reason For Visit: CELLULITLS Discharge Diagnosis: Infection of left foot: Lower extremity swelling Obesity Hx Multiple pulmonary emboli: Activity: Resume your previous activity Non-emergency contact: Primary Care Provider Call non-emergency contact if: you have any medication questions Follow-up/Referrals: Adama Mejia MD [Primary Care Provider] - (Date & Time 08/04/2021 1:40 PM Provider Janak Viramontes MD Department [facility] ) Diet: Heart Healthy Addtl Attending Provider Instructions: Follow up with your wound care clinic on 08/09/2021 @2:10 PM Rhonda Colon DPM Department Wound Care, [facility] Follow up with your primary care provider on 08/04/2021 @ 1:40 PM Janak Viramontes MD Department [facility] Follow up with podiatry outpatient Continue treatment of Lower extremity swelling with compression stocking Continue wound care with home health nurse Complete the course of the antibiotic with Cipro Seek medical attention if the infection in your leg worsening Fall precaution Pending Studies at Discharge: No Stand-Alone Forms: My [employer], Smoking Cessation Medications and DC Order Prescriptions: New ciprofloxacin HCl 750 mg tablet 750 mg PO Q12H 5 Days Qty: 10 RF: 0 Continued dextromethorphan-guaifenesin 10-100 mg/5 mL Syrup 10 ml PO Q4H PRN (Reason: Cough) RF: 0 finasteride 5 mg Tablet 5 mg PO DAILY RF: 0 furosemide 40 mg tablet 40 mg PO BID RF: 0 omeprazole 40 mg capsule,delayed release(DR/EC) 40 mg PO DAILY RF: 0 acetaminophen [Tylenol Extra Strength] 500 mg Tablet 1,000 mg PO DIRECTED PRN (Reason: Pain) RF: 0 naproxen sodium [Aleve] 220 mg Tablet 220 - 440 mg PO DIRECTED PRN (Reason: Pain) RF: 0 Eliquis 5 mg tablet 5 mg PO BID RF: 0 Discontinued cephalexin 500 mg capsule 500 mg PO QID RF: 0 Discharge Orders: Discharge Order (Routine); Ordered 07/30/21 Ordered By: Steph Dozier Admission Data Admit Date/Time: 07/25/21 20:58 Attending Provider: Steph Dozier Admit Provider: Romain Dow Primary Care Provider: Adama Mejia Other Providers: Romain Dow ; Nisha Del Angel ; [facility] Other Interventions: Discharge Summary Assessment (RN) Last Done: 07/30/21 12:47
== END 2021-07-30 16:39 | disposition home health service (06) | DRG 603 ==
LOC: ED 16:22 → 2N 20:38
DX: M86.9 Osteomyelitis, unspecified; Z79.01 Long term (current) use of anticoagulants; Z88.0 Allergy status to penicillin; L03.116 Cellulitis of left lower limb; Z68.38 Body mass index [BMI] 38.0-38.9, adult; Z86.16 Personal history of COVID-19; Z86.711 Personal history of pulmonary embolism; L08.9 Local infection of the skin and subcutaneous tissue, unspecified; Z87.891 Personal history of nicotine dependence; E66.9 Obesity, unspecified; I50.32 Chronic diastolic (congestive) heart failure